=== PATIENT | female | born 1950 | race Caucasian/White ===

== ENCOUNTER → 2016-11-17 | Outpatient (CLI) | payer MEDICARE, MEDICAID ==
[~2016-11-17] MED LIST: ALDACTONE 25MG25 M1 PO; AMBIEN 10MG10 MG PO; AMLOPIDINE PO; ARICEPT10 MG PO; ASPIRIN E.C.325 MG PO; ATIVAN 1MG T1 MG/TAB PO; CARDIZEM CD 24240 MG PO; CARDIZEM LA240 MG PO; CARDIZEM120 MG PO; CELEXA20 MG PO; CITALOPRAM20 MG PO; CLOPIDOGREL PO; COUMADIN 5MG5 MG/TAB PO; COUMADIN 77.5 MG/TAB PO; DIGOXIN PO; DILTIAZEM PO; DILTIAZEM120 MG PO; HYZAAR 12.5 MG-1 TAB PO; ISONIAZID PO; KEPPRA 500MG500 MG PO; LASIX 20MG TABL20 MG PO; LISINOPRIL20 MG PO; METOPROLOL50 MG PO; MYSOLINE 5050 MG/TAB PO; NEURONTIN300 MG/CAP PO; NORCO 325 MG-51 TAB PO; PREVACID 30MG30 M1 PO; PRILOSEC10 MG PO; PROAIR HFA0.09 MG/AC IH; PROTONIX 40MG T40 MG PO; PYRIDOXINE PO; RANITIDINE HYD150 MG PO; RESTORIL30 MG PO; SIMVASTATIN40 MG PO; TAMBOCOR 1100 MG/TAB PO; TAMBOCOR150 MG PO; TIKOSYN0.125 MG PO; ULTRAM 50MG TAB50 MG PO; ULTRAM50 MG PO; VIIBRYD20 MG PO; VITAMIND3 5000; WARFARIN SODIUM5 MG PO; ZANTAC 150150 MG PO; ZANTAC PO; ZANTAC150 MG PO; ZOCOR40 MG PO; ZOLPIDEM TART5 MG PO; ZOLPIDEM5 MG PO; [UNRECOGNIZED DRUG - OTHER]
== END ==
LOC: MHCPAIN 08:40
DX: G89.29 Other chronic pain (principal); M47.817 Spondylosis without myelopathy or radiculopathy, lumbosacral region; M54.16 Radiculopathy, lumbar region; M53.3 Sacrococcygeal disorders, not elsewhere classified; M48.06 Spinal stenosis, lumbar region
CPT/HCPCS: G0463

== ENCOUNTER → 2016-11-30 | Outpatient (CLI) | payer MEDICARE, MEDICAID | LOC: MHCPAIN 08:27 | DX: M47.817 Spondylosis without myelopathy or radiculopathy, lumbosacral region (principal) | CPT/HCPCS: J1100; Q9967 ==

== ENCOUNTER → 2017-01-02 | Outpatient (CLI) | payer MEDICARE, MEDICAID | LOC: MHCPAIN 12:06 | DX: G89.29 Other chronic pain (principal); M47.817 Spondylosis without myelopathy or radiculopathy, lumbosacral region; M54.16 Radiculopathy, lumbar region; M53.3 Sacrococcygeal disorders, not elsewhere classified | CPT/HCPCS: G0463 ==

== ENCOUNTER → 2017-01-11 | Outpatient (CLI) | payer MEDICARE, MEDICAID ==
[2017-01-11 14:04] LABS: PROTHROMBIN TIME 11.1 SECONDS (9.7-12.8)
== END ==
LOC: MHCPAIN 12:01
PROVIDERS: Anesthesiology Pain Medicine
DX: M47.817 Spondylosis without myelopathy or radiculopathy, lumbosacral region (principal); Z79.01 Long term (current) use of anticoagulants; M53.3 Sacrococcygeal disorders, not elsewhere classified
CPT/HCPCS: G0260; J1040; Q9967

== ENCOUNTER 2017-01-31 04:30 | Emergency (ER) | payer MEDICARE, MEDICAID ==
[~2017-01-31] VITALS: Ht 172.7 cm; Wt 113.6 kg
[~2017-01-31 04:30] MED LIST changes: -LASIX 20MG TABL20 MG PO; -VITAMIND3 5000
[2017-01-31 04:32] VITALS: TEMP 97
[2017-01-31] MEDS ORDERED: VITAMIND3 5000 (04:39)
[2017-01-31] MEDS ORDERED: LASIX 20MG TABL20 MG PO (04:39)
[2017-01-31] MEDS ORDERED: NORCO 325 MG-51 TAB PO (05:48)
[2017-01-31 05:58] VITALS: BP 114/68; PULSE 74
== END 2017-01-31 07:00 | disposition home or self-care (01) ==
LOC: COL.ER 04:30
DX: M48.56XA Collapsed vertebra, not elsewhere classified, lumbar region, initial encounter for fracture (principal); M54.16 Radiculopathy, lumbar region; I10 Essential (primary) hypertension; I48.91 Unspecified atrial fibrillation; F17.200 Nicotine dependence, unspecified, uncomplicated; Z95.0 Presence of cardiac pacemaker; Z79.01 Long term (current) use of anticoagulants
CPT/HCPCS: J2270; J2360

== ENCOUNTER → 2017-02-02 | Outpatient (CLI) | payer MEDICARE, MEDICAID ==
[~2017-02-02] MED LIST changes: +LASIX 20MG TABL20 MG PO; +VITAMIND3 5000
== END ==
LOC: COL.RAD 12:30
DX: S32.030A Wedge compression fracture of third lumbar vertebra, initial encounter for closed fracture (principal); S32.010A Wedge compression fracture of first lumbar vertebra, initial encounter for closed fracture; S32.040A Wedge compression fracture of fourth lumbar vertebra, initial encounter for closed fracture; M48.06 Spinal stenosis, lumbar region; M47.816 Spondylosis without myelopathy or radiculopathy, lumbar region; M43.16 Spondylolisthesis, lumbar region; Z87.81 Personal history of (healed) traumatic fracture

== ENCOUNTER → 2017-02-13 | Outpatient (CLI) | payer MEDICARE, MEDICAID | LOC: MHCPAIN 10:00 | DX: G89.29 Other chronic pain (principal); M47.817 Spondylosis without myelopathy or radiculopathy, lumbosacral region; M54.16 Radiculopathy, lumbar region; M53.3 Sacrococcygeal disorders, not elsewhere classified | CPT/HCPCS: G0463 ==

== ENCOUNTER → 2017-03-20 | Outpatient (CLI) | payer MEDICARE, MEDICAID | LOC: MHCPAIN 09:51 | DX: G89.29 Other chronic pain (principal); M47.27 Other spondylosis with radiculopathy, lumbosacral region; M53.3 Sacrococcygeal disorders, not elsewhere classified; Z79.01 Long term (current) use of anticoagulants; M25.569 Pain in unspecified knee; Z96.653 Presence of artificial knee joint, bilateral | CPT/HCPCS: G0463 ==

== ENCOUNTER → 2017-06-19 | Outpatient (CLI) | payer MEDICARE, MEDICAID | LOC: MHCPAIN 09:47 | DX: G89.29 Other chronic pain (principal); M47.817 Spondylosis without myelopathy or radiculopathy, lumbosacral region; M53.3 Sacrococcygeal disorders, not elsewhere classified | CPT/HCPCS: G0463 ==

== ENCOUNTER → 2017-08-03 | Outpatient (CLI) | payer MEDICARE, MEDICAID | LOC: MC.RAD 06:58 | DX: Z12.31 Encounter for screening mammogram for malignant neoplasm of breast (principal) ==

== ENCOUNTER → 2017-08-20 | Outpatient (CLI) | payer MEDICARE, MEDICAID | LOC: MHCPAIN 09:48 | DX: G89.29 Other chronic pain (principal); M47.27 Other spondylosis with radiculopathy, lumbosacral region; M48.061 Spinal stenosis, lumbar region without neurogenic claudication; M53.3 Sacrococcygeal disorders, not elsewhere classified | CPT/HCPCS: G0463 ==

== ENCOUNTER → 2017-09-01 | Outpatient (REF) ==
[2017-09-01 05:10] LABS: INR 1.2 (0.8-3.0); PROTHROMBIN TIME 14.4 SECONDS (9.7-12.8)
== END ==
LOC: ZMSC 05:05
PROVIDERS: Orthopaedic Surgery
DX: Z01.89 Encounter for other specified special examinations (principal)

== ENCOUNTER → 2017-11-27 | Outpatient (CLI) | payer MEDICARE, MEDICAID | LOC: MHCPAIN 13:22 | DX: G89.29 Other chronic pain (principal); M47.817 Spondylosis without myelopathy or radiculopathy, lumbosacral region; M54.16 Radiculopathy, lumbar region; M53.3 Sacrococcygeal disorders, not elsewhere classified | CPT/HCPCS: G0463 ==

== ENCOUNTER → 2017-12-13 | Outpatient (CLI) | payer MEDICARE, MEDICAID | LOC: MHCPAIN 09:42 | DX: M47.817 Spondylosis without myelopathy or radiculopathy, lumbosacral region (principal); M46.96 Unspecified inflammatory spondylopathy, lumbar region | CPT/HCPCS: J1040; Q9967 ==

== ENCOUNTER → 2018-01-15 | Outpatient (CLI) | payer MEDICARE, MEDICAID | LOC: MHCPAIN 13:21 | DX: G89.29 Other chronic pain (principal); M47.817 Spondylosis without myelopathy or radiculopathy, lumbosacral region; M54.16 Radiculopathy, lumbar region; M53.3 Sacrococcygeal disorders, not elsewhere classified; M48.061 Spinal stenosis, lumbar region without neurogenic claudication | CPT/HCPCS: G0463 ==

== ENCOUNTER → 2018-01-21 | Outpatient (CLI) | payer MEDICARE, MEDICAID | LOC: MHCPAIN 12:56 | DX: M47.817 Spondylosis without myelopathy or radiculopathy, lumbosacral region (principal); M48.061 Spinal stenosis, lumbar region without neurogenic claudication | CPT/HCPCS: J1040; Q9967 ==

== ENCOUNTER → 2018-03-04 | Outpatient (CLI) | payer MEDICARE, MEDICAID | LOC: MHCPAIN 10:07 | DX: G89.29 Other chronic pain (principal); M47.817 Spondylosis without myelopathy or radiculopathy, lumbosacral region; M54.16 Radiculopathy, lumbar region; M53.3 Sacrococcygeal disorders, not elsewhere classified; M48.061 Spinal stenosis, lumbar region without neurogenic claudication | CPT/HCPCS: G0463 ==

== ENCOUNTER → 2018-04-25 | Outpatient (REF) ==
[~2018-04-25] MED LIST changes: +D3-5050000 IU PO; +HYZAAR 25 MG-101 TAB PO; +KEPPRA750 MG PO; +OMNICEF 300MG300 MG PO; +TYLENOL 325MG325 MG PO; +VIIBRYD40 MG PO
[2018-04-25 13:48] LABS: HEMATOCRIT 37.4 % (37.0-47.0); HEMOGLOBIN 11.9 g/dl (12.5-16.0); MEAN CELL VOLUME 97 fl (80.0-100.0); MEAN CORPUSCULAR HEMOGLOBIN 31 pg (27.0-31.0); MEAN CORPUSCULAR HGB CONC 32 g/dl (33.0-37.0); MEAN PLATELET VOLUME 9.9 fl (7.4-10.4); PLATELET COUNT 288 K/mm3 (130-400); RED BLOOD COUNT 3.86 M/mm3 (4.10-5.30); REDCELL DISTRIBUTION WIDTH-CV 13.7 % (11.5-14.5)
== END ==
LOC: ZLAB.STJ 13:43
PROVIDERS: Internal Medicine
DX: J13 Pneumonia due to Streptococcus pneumoniae (principal); E87.8 Other disorders of electrolyte and fluid balance, not elsewhere classified

== ENCOUNTER → 2018-04-26 | Outpatient (REF) ==
[2018-04-26 10:15] LABS: CALCIUM 8.4 mg/dL (8.4-10.2); CREATININE, serum 0.83 mg/dL (0.52-1.25); POTASSIUM 4.7 mmol/L (3.4-5.0)
== END ==
LOC: ZLAB.STJ 09:49
PROVIDERS: Internal Medicine
DX: R79.89 Other specified abnormal findings of blood chemistry (principal)

== ENCOUNTER → 2018-09-18 | Outpatient (CLI) | payer MEDICARE, MEDICAID | LOC: MHCPAIN 13:57 | DX: G89.29 Other chronic pain (principal); M47.817 Spondylosis without myelopathy or radiculopathy, lumbosacral region; M54.16 Radiculopathy, lumbar region; M53.3 Sacrococcygeal disorders, not elsewhere classified; M48.061 Spinal stenosis, lumbar region without neurogenic claudication | CPT/HCPCS: G0463 ==

== ENCOUNTER → 2018-09-26 | Outpatient (CLI) | payer MEDICARE, MEDICAID | LOC: MHCPAIN 09:32 | DX: M47.817 Spondylosis without myelopathy or radiculopathy, lumbosacral region (principal); M54.16 Radiculopathy, lumbar region | CPT/HCPCS: J1100; Q9967 ==

== ENCOUNTER → 2018-12-09 | Outpatient (CLI) | payer MEDICARE, MEDICAID | LOC: MHCPAIN 10:52 | DX: G89.29 Other chronic pain (principal); M47.817 Spondylosis without myelopathy or radiculopathy, lumbosacral region; M54.16 Radiculopathy, lumbar region; M53.3 Sacrococcygeal disorders, not elsewhere classified; M48.061 Spinal stenosis, lumbar region without neurogenic claudication | CPT/HCPCS: G0463 ==

== ENCOUNTER 2019-01-27 08:30 | Emergency (ER) | payer MEDICARE, MEDICAID ==
[~2019-01-27] VITALS: Ht 170.2 cm; Wt 109.1 kg
[2019-01-27 08:33] VITALS: BP 127/82; TEMP 97.5
[2019-01-27] MEDS ORDERED: KEPPRA750 MG PO (09:00)
[2019-01-27] MEDS ORDERED: COUMADIN 5MG5 MG/TAB PO (09:01)
[2019-01-27] MEDS ORDERED: COUMADIN 2MG2 MG/TAB PO (09:02)
[2019-01-27 12:29] VITALS: PULSE 74
== END 2019-01-27 12:29 | disposition home or self-care (01) ==
LOC: COL.ER 08:30
DX: S02.69XA Fracture of mandible of other specified site, initial encounter for closed fracture (principal); I48.91 Unspecified atrial fibrillation; K21.9 Gastro-esophageal reflux disease without esophagitis; F32.9 Major depressive disorder, single episode, unspecified; Z79.01 Long term (current) use of anticoagulants; Z95.0 Presence of cardiac pacemaker; W01.10XA Fall on same level from slipping, tripping and stumbling with subsequent striking against unspecified object, initial encounter; Y92.009 Unspecified place in unspecified non-institutional (private) residence as the place of occurrence of the external cause

== ENCOUNTER 2019-05-13 18:11 | Emergency (ER) | payer MEDICARE, MEDICAID ==
[~2019-05-13] VITALS: Ht 170.2 cm; Wt 97.7 kg
[~2019-05-13 18:11] MED LIST changes: +COUMADIN 2MG2 MG/TAB PO
[2019-05-13 18:29] VITALS: TEMP 98
[2019-05-13 19:04] LABS: HEMATOCRIT 41.5 % (37.0-47.0); HEMOGLOBIN 13.6 g/dl (12.5-16.0); MEAN CELL VOLUME 94 fl (80.0-100.0); MEAN CORPUSCULAR HEMOGLOBIN 31 pg (27.0-31.0); MEAN CORPUSCULAR HGB CONC 33 g/dl (33.0-37.0); MEAN PLATELET VOLUME 10.2 fl (7.4-10.4); PLATELET COUNT 182 K/mm3 (130-400); RED BLOOD COUNT 4.43 M/mm3 (4.10-5.30); REDCELL DISTRIBUTION WIDTH-CV 13.8 % (11.5-14.5)
[2019-05-13 19:08] LABS: INR 2.3 (0.8-3.0); PROTHROMBIN TIME 27.8 SECONDS (9.7-12.8)
[2019-05-13 19:23] LABS: ALANINE AMINOTRANSFERASE 10 U/L (9-52); ALBUMIN 4.5 gm/dL (3.5-5.0); ALKALINE PHOSPHATASE 109 U/L (50-136); ANION GAP 10 mmol/L (7-16); AST,SGOT 41 U/L (15-37); BILIRUBIN,TOTAL 0.7 mg/dL (0.0-1.0); BLOOD UREA NITROGEN 11 mg/dL (7-17); C-REACTIVE PROTEIN 0.9 mg/dL (0.0-0.9); CALCIUM 9.2 mg/dL (8.4-10.2); CARBON DIOXIDE 29 mmol/L (22-30); CHLORIDE 99 mmol/L (98-107); CREATININE, serum 0.89 (0.52-1.25); GLUCOSE 80 mg/dL (74-106); POTASSIUM 3.5 mmol/L (3.4-5.0); SODIUM 138 mmol/L (137-145); TOTAL PROTEIN 7.6 gm/dL (6.4-8.2)
[2019-05-13 19:39] LABS: TROPONIN-I < 0.012 ng/mL (0.000-0.035)
[2019-05-13] MEDS ORDERED: JANTOVEN6 MG PO (19:41)
[2019-05-13] MEDS ORDERED: COUMADIN 5MG5 MG/TAB PO (19:41)
[2019-05-13 19:49] VITALS: BP 114/83
[2019-05-13 19:54] LABS: NEUTROPHILS 43 % (42.0-75.2); PLATELET ESTIMATE NORMAL (NORMAL)
[2019-05-13 19:55] LABS: LYMPHOCYTE 53 % (20.0-51.0)
[2019-05-13] MEDS ORDERED: NORCO 325 MG-51 TAB PO (20:26)
[2019-05-13 20:41] VITALS: PULSE 98
[2019-05-13] MEDS ORDERED: ZITHROMAX 250M250 MG PO (20:41)
== END 2019-05-13 20:59 | disposition home or self-care (01) ==
LOC: COL.ER 18:11
PROVIDERS: Emergency Medicine
DX: J20.9 Acute bronchitis, unspecified (principal); S22.31XA Fracture of one rib, right side, initial encounter for closed fracture; I48.91 Unspecified atrial fibrillation; Z79.01 Long term (current) use of anticoagulants

== ENCOUNTER 2019-10-24 16:04 | Inpatient (IN) | payer MEDICARE, MEDICAID ==
[~2019-10-24] VITALS: Ht 170.2 cm; Wt 94.3 kg
[~2019-10-24 16:04] MED LIST changes: +JANTOVEN6 MG PO; +ZITHROMAX 250M250 MG PO
[2019-10-24] MEDS ORDERED: PROTONIX 40MG T40 MG PO (16:24)
[2019-10-24] MEDS ORDERED: MYSOLINE 5050 MG/TAB PO (16:25)
[2019-10-24 17:14] LABS: BASO % 0.4 % (0.0-2.0); EOS # 0.1 (0.0-0.7); EOS % 2.1 % (0-4.0); GRAN # 3.1 (1.4-6.5); GRAN % 58.5 % (42.2-75.2); HEMATOCRIT 40.5 % (37.0-47.0); HEMOGLOBIN 13.2 g/dl (12.5-16.0); LYMPH # 1.5 (1.2-3.4); LYMPH % 27.3 % (20.0-51.0); MEAN CELL VOLUME 96 fl (80.0-100.0); MEAN CORPUSCULAR HEMOGLOBIN 31 pg (27.0-31.0); MEAN CORPUSCULAR HGB CONC 33 g/dl (33.0-37.0); MEAN PLATELET VOLUME 10.2 fl (7.4-10.4); MONO # 0.6 (0.1-0.6); MONO % 11.5 % (1.7-9.3); PLATELET COUNT 185 K/mm3 (130-400); RED BLOOD COUNT 4.23 M/mm3 (4.10-5.30); REDCELL DISTRIBUTION WIDTH-CV 14.2 % (11.5-14.5)
[2019-10-24 17:17] LABS: INR 1.9 (0.8-3.0); PROTHROMBIN TIME 22.8 SECONDS (9.7-12.8)
[2019-10-24 17:22] LABS: ALANINE AMINOTRANSFERASE 17 U/L (4-34); ALBUMIN 4.3 gm/dL (3.5-5.0); ALKALINE PHOSPHATASE 115 U/L (50-136); ANION GAP 10 mmol/L (7-16); AST,SGOT 36 U/L (15-37); BILIRUBIN,TOTAL 1.3 mg/dL (0.0-1.0); BLOOD UREA NITROGEN 14 mg/dL (7-17); C-REACTIVE PROTEIN 1.7 mg/dL (0.0-0.9); CALCIUM 9.1 mg/dL (8.4-10.2); CARBON DIOXIDE 22 mmol/L (22-30); CHLORIDE 103 mmol/L (98-107); CREATININE, serum 1.05 (0.52-1.25); GLUCOSE 117 mg/dL (74-106); POTASSIUM 4.4 mmol/L (3.4-5.0); SODIUM 135 mmol/L (137-145); TOTAL PROTEIN 7.5 gm/dL (6.4-8.2)
[2019-10-24 17:31] LABS: TROPONIN-I < 0.012 ng/mL (0.000-0.035)
[2019-10-24 17:41] LABS: ARTERIAL BLD GAS O2 SATURATION 95.2 % (92-100); ARTERIAL BLD GAS TCO2 CT 20.3; ARTERIAL BLOOD GAS BASE EXCESS -3.8 (-2-2); ARTERIAL BLOOD GAS HCO3 19.3 meq/L (22-26); ARTERIAL BLOOD GAS PCO2 29.8 mmHg (35-45); ARTERIAL BLOOD GAS PO2 74.4 mmHg (80-100); ARTERIAL BLOOD GAS pH 7.43 (7.35-7.45)
[2019-10-24 18:41] LABS: MAGNESIUM 1.9 mg/dL (1.6-2.3)
[2019-10-24 19:00] VITALS: BP 134/97; PULSE 103; TEMP 98.8
[2019-10-24 19:12] LABS: THYROID STIMULATING HORMONE 6.41 uIU/mL (0.465-4.680)
[2019-10-24 19:50] VITALS: BP 134/97; PULSE 103; TEMP 98.8
--- NOTE | 2019-10-24 19:50 | NUR ---
PT ADMITTED TO CU 15 FROM ED, PT CURRENTLY ON 6L OXYMASK, CARDIZEM GTT @15MG/HR. PT DENIES ANY PAIN BUT STATES SHE IS STILL A BIT SHORT OF BREATH. VSS AT THIS TIME, WILL CONTINUE TO ASSESS AND CONTINUE TO MONITOR.
[2019-10-24 20:00] VITALS: BP 124/70
[2019-10-24] MEDS ORDERED: VITAMIND3 5000 PO (20:07)
[2019-10-25] VITALS (9 sets, daily range): BP systolic 108–131; BP diastolic 68–90; PULSE 71–101; TEMP 97.8–99.2
[2019-10-25 05:47] LABS: BASO % 0.6 % (0.0-2.0); EOS # 0.2 (0.0-0.7); GRAN # 2.5 (1.4-6.5); GRAN % 49.5 % (42.2-75.2); HEMATOCRIT 38.5 % (37.0-47.0); HEMOGLOBIN 12.5 g/dl (12.5-16.0); LYMPH # 1.8 (1.2-3.4); LYMPH % 35.3 % (20.0-51.0); MEAN CELL VOLUME 95 fl (80.0-100.0); MEAN CORPUSCULAR HEMOGLOBIN 31 pg (27.0-31.0); MEAN CORPUSCULAR HGB CONC 33 g/dl (33.0-37.0); MEAN PLATELET VOLUME 9.9 fl (7.4-10.4); MONO # 0.6 (0.1-0.6); MONO % 11.4 % (1.7-9.3); PLATELET COUNT 159 K/mm3 (130-400); RED BLOOD COUNT 4.06 M/mm3 (4.10-5.30); REDCELL DISTRIBUTION WIDTH-CV 13.8 % (11.5-14.5)
[2019-10-25 05:53] LABS: CALCIUM 8.7 mg/dL (8.4-10.2); CREATININE, serum 0.83 (0.52-1.25); POTASSIUM 3.8 mmol/L (3.4-5.0)
--- NOTE | 2019-10-25 07:20 | NUR ---
Report recieved from CHIDI Clayton. Patient awake and participates. Cardizem concentration and rate verified and infusing to uncomplicated LAC IV. OM at 6LO2 in place and turned down to 4L. Patient denies needs at this time. Care assumed.
[2019-10-25 09:30] LABS: INR 1.8 (0.8-3.0); PROTHROMBIN TIME 21.6 SECONDS (9.7-12.8)
--- NOTE | 2019-10-25 09:30 | NUR ---
Dr. Garcia rounds at this time. Orders as entered CPOE.
--- NOTE | 2019-10-25 10:42 | NUR ---
Chaz from [employer] contacted per MD request for pacer interrogation. Chaz asks ED interrogation device be utilized. psychiatric social worker supervisor is notified of need.
[2019-10-26] VITALS (7 sets, daily range): BP systolic 105–120; BP diastolic 65–89; PULSE 80–110; TEMP 97.8–98.2
--- NOTE | 2019-10-26 04:37 | NUR ---
Pt in bed with Oxymask on, HOB elevated to 30 degree angle, denies pain or discomfort, and A/O x3. Pt awaken easily and is pleasant and cooperative with cares. LS CTA with resp even and unlabored, and BLE +2 edema. Pt denies any needs at this time, but has call light within reach.
--- NOTE | 2019-10-26 07:00 | NUR ---
Report received from CHIDI Aguilera. Pt in bed resting with no needs, awake and alert, anticipating breakfast, will continue to monitor.
[2019-10-26 09:40] LABS: CALCIUM 8.4 mg/dL (8.4-10.2); CREATININE, serum 0.91 (0.52-1.25); MAGNESIUM 1.8 mg/dL (1.6-2.3); POTASSIUM 3.6 mmol/L (3.4-5.0)
[2019-10-26 09:42] LABS: HEMOGLOBIN 11.1 g/dl (12.5-16.0); MEAN CELL VOLUME 96 fl (80.0-100.0); MEAN CORPUSCULAR HEMOGLOBIN 31 pg (27.0-31.0); MEAN CORPUSCULAR HGB CONC 33 g/dl (33.0-37.0); MEAN PLATELET VOLUME 10.1 fl (7.4-10.4); PLATELET COUNT 161 K/mm3 (130-400); RED BLOOD COUNT 3.55 M/mm3 (4.10-5.30); REDCELL DISTRIBUTION WIDTH-CV 13.8 % (11.5-14.5)
--- NOTE | 2019-10-26 10:07 | NUR ---
Assessment charted. Pt doing well, continues to have irregular heart rhythm per monitor and pt aware. BB fine crackles and diminished but UL clear bilaterally. Denies pain, oriented, anticipating echo. NO IV access, doctors aware, will continue to monitor.
[2019-10-26 10:53] LABS: HEMATOCRIT 34.2 % (37.0-47.0)
[2019-10-26 11:51] LABS: BAND 5 % (0-10); EOSINOPHIL 3 % (0-4); LYMPHOCYTE 31 % (20.0-51.0); NEUTROPHILS 59 % (42.0-75.2); PLATELET ESTIMATE NORMAL (NORMAL)
[2019-10-26 13:55] LABS: INR 2.1 (0.8-3.0); PROTHROMBIN TIME 24.7 SECONDS (9.7-12.8)
--- NOTE | 2019-10-26 16:42 | NUR ---
Report called to Rupa MURILLO who will resume care. Will transport pt up via w/c with all belongings and medical nurse will resume care.
--- NOTE | 2019-10-26 17:41 | NUR ---
Patient transferred from [facility] to room 309. arived to room via wc. report received from Hannah MURILLO. Upon arrival patient A/O x 4. Denies c/o pain or discomfort. Ambulated with stand by assist to recliner. O2 4L/NC in place. patient denies shortness of breathe at this time. telemetry monitoring in place as ordered. coasre crackles in all lobes upon ascultation. 2+ pitting edema in bilateral lower extremities. chart reviewed. Allergies reviewed with patient. Patient oriented to room. Demonstrates appropriate usage of call light. No questions or concerns at end of visit.
--- NOTE | 2019-10-26 20:00 | NUR ---
PT IN ROOM SITTING IN RECLINER AND AMBULATED TO BED. PT HAS HOB ELEVATED, NO C/O PAIN OR DISCOMFORT. PT REMAINS WITH OXYGEN ON, BUT RESP EVEN AND UNLABORED. PT DENIES PAIN OR ANY NEEDS AT THIS TIME. CALL LIGHT WITHIN REACH.
[2019-10-27] VITALS (8 sets, daily range): BP systolic 103–119; BP diastolic 56–74; PULSE 64–120; TEMP 97.9–98.6
--- NOTE | 2019-10-27 06:22 | NUR ---
PT HAD NO CHANGES DURING THIS SHIFT. PT SLEPT WELL AND NO C/O PAIN OR DISCOMFORT. PT AMBULATED TO THE BATHROOM AND BACK WITHOUT DIFFICULTIES. PT STILL WEARING OXYGEN, BUT RESP ARE EVEN AND UNLABORED. CALL LIGHT WITHIN REACH.
[2019-10-27 11:18] LABS: INR 2.1 (0.8-3.0); PROTHROMBIN TIME 25.3 SECONDS (9.7-12.8)
--- NOTE | 2019-10-27 16:06 | NUR ---
Customs Verifier met with patient to discuss discharge planning. Patient lives alone in [place] and sees Dr. Kirkland from primary care. Patient obtains medications from [facility] pharmacy with no difficulties. Patient reports she has had more difficulty getting around recently. Patient uses a walking stick and CPAP at home. Patient has Advance Directives on file that designate Lester Aleman and Lucero Angulo, daughter (ph#[phone]). Patient states her granddaughter, Fernanda (ph#[phone]) is also a good contact for her. Patient states she has had [facility] in the past and isn't sure if she would need HH upon discharge. Patient plans to return home upon discharge. ARY spoke with ИВАН Pond about ordering PT/OT. SW to continue to follow.
--- NOTE | 2019-10-27 16:30 | NUR ---
Report with CHIDI Goode and care taken over by this nurse for remainder of shift. Pt sitting up in bed, denies pain or needs. Call light in reach.
[2019-10-28] VITALS (16 sets, daily range): BP systolic 99–140; BP diastolic 57–95; PULSE 62–89; TEMP 97.6–98.1
--- NOTE | 2019-10-28 04:43 | NUR ---
PATIENT HAS HAD AN UNEVENTFUL NIGHT. PATIENT HAS SLEPT AND DENIED ANY NEEDS. DURING HER ASSESSMENT IN THE HS - LUNG SOUNDS WERE NOTED TO BE COARSE THROUGHOUT. NO OTHER SIGNIFICANT FINDINGS WERE NOTED. WILL REPORT OFF TO DAY SHIFT UPON THEIR ARRIVAL
[2019-10-28 06:34] LABS: BASO % 0.6 % (0.0-2.0); EOS # 0.2 (0.0-0.7); EOS % 4.4 % (0-4.0); GRAN # 1.6 (1.4-6.5); GRAN % 43.8 % (42.2-75.2); HEMOGLOBIN 11.2 g/dl (12.5-16.0); LYMPH # 1.4 (1.2-3.4); LYMPH % 38.2 % (20.0-51.0); MEAN CELL VOLUME 98 fl (80.0-100.0); MEAN CORPUSCULAR HEMOGLOBIN 31 pg (27.0-31.0); MEAN CORPUSCULAR HGB CONC 32 g/dl (33.0-37.0); MEAN PLATELET VOLUME 9.9 fl (7.4-10.4); MONO # 0.5 (0.1-0.6); MONO % 12.7 % (1.7-9.3); PLATELET COUNT 171 K/mm3 (130-400); RED BLOOD COUNT 3.57 M/mm3 (4.10-5.30); REDCELL DISTRIBUTION WIDTH-CV 13.6 % (11.5-14.5)
[2019-10-28 06:41] LABS: CALCIUM 8.9 mg/dL (8.4-10.2); CREATININE, serum 0.91 (0.52-1.25); POTASSIUM 4.1 mmol/L (3.4-5.0)
[2019-10-28 07:05] LABS: HEMATOCRIT 34.9 % (37.0-47.0)
[2019-10-28 08:29] LABS: INR 1.4 (0.8-3.0); PROTHROMBIN TIME 15.9 SECONDS (9.7-12.8)
--- NOTE | 2019-10-28 09:13 | NUR ---
SEE MERGE FOR MEDICATION ADMINISTRATION TIMES AND INTRA AND POST SEDATION ASSESSMENTS.
--- NOTE | 2019-10-28 10:23 | NUR ---
PATIENT BACK IN ROOM FROM BIODIESEL ENGINEERING MANAGER. A/O X4. DENIES COMPLAINTS OF PAIN OR DISCOMFORT. TR BAND IN PLACE OF RIGHT RADIAL INSERTION SITE. PER BIODIESEL ENGINEERING MANAGER RN 14ML AIR IN BAND. NEUROVASCULAR CHECKS WNL. CAP REFILL LESS THAN 3 SECONDS. SKIN PINK AND WARM. DENIES NUMBNESS AND TINGLING IN RIGHT HAND. NO DRAINAGE NOTED. PATIENT HAS NO QUESTIONS OR CONCERNS.
--- NOTE | 2019-10-28 10:52 | NUR ---
PATIENT SITTING UP IN BED EATING BREAKFAST. DENIES NEEDS OR CONCERNS. RIGHT RADIAL WNL. SEE DOCUMENTATION.
--- NOTE | 2019-10-28 11:35 | NUR ---
PATIENT UP TO BATHRROM WITH STAND BY ASSIST. STEADY GAIT. DENIES C/O SOA, CHEST PAIN, OR BEING LIGHT HEADED. CURRENTLY BACK IN BED. SEE DOCUMENTATION FOR VS WNL. IV FLUIDS INFUSING ORDERED X 2 HOURS. POST HEART CATH EKG COMPLETED BY RT. RIGHT RADIAL INSERTION SITE WNL. SKIN PINK AND WARM. PATIENT DENIES NUMBNESS OR TINGLING TO HAND OR FINGERS. CAP REFILL LESS THAN 3 SECONDS.
--- NOTE | 2019-10-28 12:12 | NUR ---
First visit from the finger waver. No needs right now.
--- NOTE | 2019-10-28 14:05 | NUR ---
PATIENT LAYING IN BED ASLEEP. AROUSABLE WHEN NAME CALLED. UPON OBSERVATION OF RIGHT RADIAL INSERTION SITE SMALL AMOUNT OF BRIGHT RED BLOOD PRESENT UNDER TR BAND. BAND REINFLATED WITH 5MLS OF AIR. RIGHT HAND PINK AND WARM. DENIES NUMBNESS OR TINGLING. CAP REFILL LESS THAN 3 SECONDS. REMOTE RECRUITER RN CALLED NO OTHER INTERVENTIONS AT THIS TIME.
--- NOTE | 2019-10-28 14:23 | NUR ---
NO ACTIVE BLLEDING TO RIGHT RADIAL PUNCTURE SITE. 5ML AIR REMOVED FROM TR BAND.
--- NOTE | 2019-10-28 20:30 | NUR ---
Patient assessed at this time. Alert and oriented x 4, and able to make needs known. Denies having pain and discomfort. Peripheral IV to left forearm. Denies having SOB and dyspnea. Currently on room air. LS CTA in upper lobes, diminished in lower. Respirations even and unlabored. HRI. Telemetry in place. Capillary refill less than 3 seconds. Non-tenting skin turgor. Right radial site from heart cath today is without hemotoma. Bandaid CDI. Arm board in place. BSAx4. Abdomen soft and non-tender. 3+ edema BLE. Voices no questions, needs, or concerns at this time. Aware that she is NPO after midnight for ERIKA and cardioversion for tomorrow. Resting in bed with call light within reach.
[2019-10-29 03:23] VITALS: BP 117/55; PULSE 69; TEMP 98
--- NOTE | 2019-10-29 06:07 | NUR ---
Patient denies having pain and discomfort. Bandaid to right radial site is CDI. Arm board in place. NPO for ERIKA and CV today.
[2019-10-29 06:13] LABS: BASO % 0.5 % (0.0-2.0); EOS # 0.2 (0.0-0.7); EOS % 4.1 % (0-4.0); GRAN # 1.8 (1.4-6.5); GRAN % 46.8 % (42.2-75.2); HEMATOCRIT 38.3 % (37.0-47.0); HEMOGLOBIN 12.2 g/dl (12.5-16.0); LYMPH # 1.5 (1.2-3.4); LYMPH % 38.6 % (20.0-51.0); MEAN CELL VOLUME 97 fl (80.0-100.0); MEAN CORPUSCULAR HEMOGLOBIN 31 pg (27.0-31.0); MEAN CORPUSCULAR HGB CONC 32 g/dl (33.0-37.0); MEAN PLATELET VOLUME 10.1 fl (7.4-10.4); MONO # 0.4 (0.1-0.6); MONO % 9.7 % (1.7-9.3); PLATELET COUNT 187 K/mm3 (130-400); RED BLOOD COUNT 3.96 M/mm3 (4.10-5.30); REDCELL DISTRIBUTION WIDTH-CV 13.5 % (11.5-14.5)
[2019-10-29 06:17] LABS: INR 1.2 (0.8-3.0); PROTHROMBIN TIME 13.5 SECONDS (9.7-12.8)
[2019-10-29 06:24] LABS: CALCIUM 9.3 mg/dL (8.4-10.2); CREATININE, serum 0.88 (0.52-1.25); POTASSIUM 4.1 mmol/L (3.4-5.0)
--- NOTE | 2019-10-29 07:41 | NUR ---
Warfarin Follow-up Pharmacy Note Current regimen: Warfarin 5 mg po qHS LABS: INR=1.2 Changes in therapy: Give increased dose of Warfarin 7.5 mg po tonight and then restart home regimen. May require decrease of home dose with the start of amiodarone. Pharmacy will continue to monitor daily INR levels.
[2019-10-29 08:10] VITALS: BP 136/75; PULSE 91; TEMP 97.9
--- NOTE | 2019-10-29 11:14 | NUR ---
Emergency Department Manager attended clinical rounds with the team and patient may discharge later today per Cardiology. Patient advised she is independent in her room and has had no difficulty getting to the bathroom or to her chair. Instrument Engineer recommending Eliquis for patient. PharmacistBozena contacted patient's pharmacy and Eliquis would be 100% covered by her insurance providers. SW met with patient about Home Health services as patient only walked 15 feet with therapy this morning. Patient states she does not feel she needs HH and has been doing well in her room. Patient states her son lives close by and is able to assist her as needed. SW to continue to follow.
[2019-10-29 12:00] VITALS: BP 122/73; PULSE 70; TEMP 97.5
[2019-10-29 13:17] VITALS: BP 137/66; PULSE 70
--- NOTE | 2019-10-29 14:32 | NUR ---
Patient is alert and oriented. denies any pain. 2+ bilateral lower extremity edema. bruise in her right hand, patient said it was from a previous IV site. Heart rhythm is irregular, breath sound is clear. denies any SOB. O2 sat >90 on RA. patient went for ERIKA/ Cardioversion, procedure successful. patient is currently A-paced. patient tolerate diet post-procedure.
--- NOTE | 2019-10-29 15:09 | NUR ---
SW presented the IM form to the patient, the patient understood. Due to COVID-19 social distancing precautions, the patient gave persmission for SW to sign on her behalf. A copy was provided to the patient and original was placed in the chart. ARY revisted the discharge plan with the patient. She is not interested in [facility] at this time. ARY educated the patient on how to receive those services in the [facility], if needed. Will continue to monitor.
[2019-10-29] MEDS ORDERED: ELIQUIS 5MG PO (15:21)
[2019-10-29] MEDS ORDERED: PACERONE400 MG PO (15:22)
[2019-10-29] MEDS ORDERED: LASIX 40MG TABL40 MG PO (15:23)
[2019-10-29] MEDS ORDERED: ZEBETA 5MG5 MG PO (15:23)
[2019-10-29 15:37] VITALS: BP 112/59; PULSE 69; TEMP 97.3
--- NOTE | 2019-10-29 17:15 | NUR ---
INT discontinued. patient was informed of future appointment with supply cataloguer and BMP in one week. patient was given discharge teaching on Afib, CHF, falls, and INR. Patient said she have all her belonging. Patient discharged.
== END 2019-10-29 17:00 | disposition home or self-care (01) | DRG 286 ==
LOC: COL.ER 16:04 → IMCU 18:26 → MEDICAL 10-26 16:36
PROVIDERS: Emergency Medicine; Nurse Practitioner Family; Physician Assistant; Student in an Organized Health Care Education/Training Program; ADMIT Internal Medicine
PROC: 5A2204Z Restoration of Cardiac Rhythm, Single (ICD-10-PCS; 2019-10-24)
PROC: 4A023N8 Measurement of Cardiac Sampling and Pressure, Bilateral, Percutaneous Approach (ICD-10-PCS; principal; 2019-10-28)
PROC: B211YZZ Fluoroscopy of Multiple Coronary Arteries using Other Contrast (ICD-10-PCS; 2019-10-28)
DX: I48.91 Unspecified atrial fibrillation (principal); J96.01 Acute respiratory failure with hypoxia; I50.23 Acute on chronic systolic (congestive) heart failure; Z96.653 Presence of artificial knee joint, bilateral; G40.909 Epilepsy, unspecified, not intractable, without status epilepticus; I42.9 Cardiomyopathy, unspecified; I42.0 Dilated cardiomyopathy; I07.1 Rheumatic tricuspid insufficiency; Z79.01 Long term (current) use of anticoagulants; Z95.0 Presence of cardiac pacemaker; Z98.51 Tubal ligation status; Z86.73 Personal history of transient ischemic attack (TIA), and cerebral infarction without residual deficits; G25.0 Essential tremor
CPT/HCPCS: 99223-AI; 99232-AI; 99233-AI; 99239; C1769; J1160; J1644; J1940; J2250; J2704; J3010; Q9967

== ENCOUNTER 2019-11-21 11:19 | Emergency (ER) | payer MEDICARE, MEDICAID ==
[~2019-11-21] VITALS: Ht 170.2 cm; Wt 88.6 kg
[~2019-11-21 11:19] MED LIST changes: +ELIQUIS 5MG PO; +LASIX 40MG TABL40 MG PO; +PACERONE400 MG PO; +VITAMIND3 5000 PO; +ZEBETA 5MG5 MG PO
[2019-11-21 11:23] VITALS: TEMP 97.8
[2019-11-21 12:12] LABS: BASO % 0.3 % (0.0-2.0); EOS # 0.1 (0.0-0.7); EOS % 3.7 % (0-4.0); GRAN # 1.5 (1.4-6.5); GRAN % 49.1 % (42.2-75.2); HEMATOCRIT 38.5 % (37.0-47.0); HEMOGLOBIN 12.4 g/dl (12.5-16.0); LYMPH # 1.2 (1.2-3.4); LYMPH % 38.9 % (20.0-51.0); MEAN CELL VOLUME 96 fl (80.0-100.0); MEAN CORPUSCULAR HEMOGLOBIN 31 pg (27.0-31.0); MEAN CORPUSCULAR HGB CONC 32 g/dl (33.0-37.0); MEAN PLATELET VOLUME 12.7 fl (7.4-10.4); MONO # 0.2 (0.1-0.6); MONO % 7.3 % (1.7-9.3); PLATELET COUNT 113 K/mm3 (130-400); RED BLOOD COUNT 4.03 M/mm3 (4.10-5.30); REDCELL DISTRIBUTION WIDTH-CV 13.9 % (11.5-14.5)
[2019-11-21 12:39] LABS: INR 1.4 (0.8-3.0); PROTHROMBIN TIME 16.1 SECONDS (9.7-12.8)
[2019-11-21 12:50] LABS: ALBUMIN 4.1 gm/dL (3.5-5.0); CREATININE, serum 1.05 (0.52-1.25)
[2019-11-21 13:01] LABS: TROPONIN-I 0.019 ng/mL (0.000-0.035)
[2019-11-21] MEDS ORDERED: DOXYCYCLINE 10100 MG PO (13:23)
[2019-11-21 15:40] VITALS: BP 96/66; PULSE 70
== END 2019-11-21 15:50 | disposition home or self-care (01) ==
LOC: COL.ER 11:19
PROVIDERS: Emergency Medicine
DX: R06.02 Shortness of breath (principal); R05 Cough; I48.91 Unspecified atrial fibrillation; G40.909 Epilepsy, unspecified, not intractable, without status epilepticus; Z95.9 Presence of cardiac and vascular implant and graft, unspecified; Z79.01 Long term (current) use of anticoagulants
CPT/HCPCS: J0696; J1940

== ENCOUNTER 2019-12-02 06:17 | Day surgery (SDC) | payer MEDICARE, MEDICAID ==
[~2019-12-02] VITALS: Ht 170.2 cm; Wt 94.4 kg
[2019-12-02] VITALS (7 sets, daily range): BP systolic 111–125; BP diastolic 72–83; PULSE 68–80; TEMP 98
[~2019-12-02 06:17] MED LIST changes: +DOXYCYCLINE 10100 MG PO
[2019-12-02 07:53] LABS: HEMATOCRIT 38.4 % (37.0-47.0); HEMOGLOBIN 12.4 g/dl (12.5-16.0); MEAN CELL VOLUME 96 fl (80.0-100.0); MEAN CORPUSCULAR HEMOGLOBIN 31 pg (27.0-31.0); MEAN CORPUSCULAR HGB CONC 32 g/dl (33.0-37.0); MEAN PLATELET VOLUME 11.3 fl (7.4-10.4); PLATELET COUNT 104 K/mm3 (130-400); REDCELL DISTRIBUTION WIDTH-CV 14.6 % (11.5-14.5)
[2019-12-02 07:54] LABS: INR 1.7 (0.8-3.0); PROTHROMBIN TIME 18.7 SECONDS (9.7-12.8)
[2019-12-02 07:57] LABS: PARTIAL THROMBOPLASTIN TIME 41.4 SECONDS (26.0-37.0)
[2019-12-02 08:00] LABS: CREATININE, serum 1.12 (0.52-1.25); POTASSIUM 4.3 mmol/L (3.4-5.0)
[2019-12-02] MEDS ORDERED: PACERONE400 MG PO ×2 (08:26→10:01)
[2019-12-02] MEDS ORDERED: ZEBETA 5MG5 MG PO (08:26)
[2019-12-02] MEDS ORDERED: LASIX 40MG TABL40 MG PO (08:27)
[2019-12-02 08:28] LABS: THYROID STIMULATING HORMONE 12.4 uIU/mL (0.465-4.680)
[2019-12-02] MEDS ORDERED: PROTONIX 40MG T40 MG PO (08:28)
[2019-12-02] MEDS ORDERED: ELIQUIS 5MG PO (08:28)
--- NOTE | 2019-12-02 11:15 | NUR ---
INT discontinued intact. Discharge instructions given. Transferred to private car by serina
== END 2019-12-02 11:15 | disposition home or self-care (01) ==
LOC: COL.CAR 06:17
PROVIDERS: Internal Medicine Cardiovascular Disease
DX: I48.0 Paroxysmal atrial fibrillation (principal); I49.5 Sick sinus syndrome; I42.8 Other cardiomyopathies; I11.9 Hypertensive heart disease without heart failure; K21.9 Gastro-esophageal reflux disease without esophagitis; I38 Endocarditis, valve unspecified; G47.33 Obstructive sleep apnea (adult) (pediatric); R60.9 Edema, unspecified; M85.80 Other specified disorders of bone density and structure, unspecified site; F32.9 Major depressive disorder, single episode, unspecified; R56.9 Unspecified convulsions; I27.20 Pulmonary hypertension, unspecified; D69.6 Thrombocytopenia, unspecified; E78.5 Hyperlipidemia, unspecified; Z95.0 Presence of cardiac pacemaker; Z79.01 Long term (current) use of anticoagulants; Z79.82 Long term (current) use of aspirin; Z86.73 Personal history of transient ischemic attack (TIA), and cerebral infarction without residual deficits; Z79.899 Other long term (current) drug therapy; E55.9 Vitamin D deficiency, unspecified
CPT/HCPCS: J2704; J7120

== ENCOUNTER 2020-07-30 17:50 | Emergency (ER) | payer MEDICARE, MEDICAID ==
[~2020-07-30] VITALS: Ht 170.2 cm; Wt 89.1 kg
[2020-07-30 18:21] VITALS: TEMP 98.3
[2020-07-30 18:54] LABS: BASO % 0.4 % (0.0-2.0); EOS # 0.1 (0.0-0.7); GRAN # 3.3 (1.4-6.5); GRAN % 59.4 % (42.2-75.2); HEMATOCRIT 40.7 % (37.0-47.0); HEMOGLOBIN 13.9 g/dl (12.5-16.0); LYMPH # 1.5 (1.2-3.4); LYMPH % 27.7 % (20.0-51.0); MEAN CELL VOLUME 96 fl (80.0-100.0); MEAN CORPUSCULAR HEMOGLOBIN 33 pg (27.0-31.0); MEAN CORPUSCULAR HGB CONC 34 g/dl (33.0-37.0); MEAN PLATELET VOLUME 10.5 fl (7.4-10.4); MONO # 0.6 (0.1-0.6); MONO % 10.1 % (1.7-9.3); PLATELET COUNT 143 K/mm3 (130-400); RED BLOOD COUNT 4.22 M/mm3 (4.10-5.30); REDCELL DISTRIBUTION WIDTH-CV 13.1 % (11.5-14.5)
[2020-07-30 18:57] LABS: COLLECTION METHOD CATHETER
[2020-07-30 19:04] LABS: PH 5 (5-8); URINE APPEARANCE Turbid; URINE BACTERIA None Seen /hpf; URINE BILIRUBIN Negative (NEGATIVE); URINE BLOOD 3+ (NEGATIVE); URINE COLOR Amber; URINE GLUCOSE Negative (NEGATIVE); URINE KETONE Negative (NEGATIVE); URINE LEUKOCYTE ESTERASE 3+ (NEGATIVE); URINE NITRATE Negative (NEGATIVE); URINE PROTEIN(semi-quant) 2+ (NEGATIVE); URINE RBC >50 /hpf; URINE UROBILINOGEN Negative (NEGATIVE); URINE WBC >50 /hpf
[2020-07-30 19:06] LABS: BILIRUBIN,TOTAL 0.6 mg/dL (0.0-1.0); CALCIUM 9.3 mg/dL (8.4-10.2); CREATININE, serum 1.34 (0.52-1.25); POTASSIUM 3.6 mmol/L (3.4-5.0)
[2020-07-30] MEDS ORDERED: OMNICEF 300MG300 MG PO (20:25)
[2020-07-30 20:38] VITALS: BP 110/87; PULSE 77
== END 2020-07-30 20:38 | disposition home or self-care (01) ==
LOC: COL.ER 17:50
PROVIDERS: Nurse Practitioner Primary Care
DX: N30.01 Acute cystitis with hematuria (principal); R79.89 Other specified abnormal findings of blood chemistry; R56.9 Unspecified convulsions; I25.2 Old myocardial infarction; I48.91 Unspecified atrial fibrillation; Z95.0 Presence of cardiac pacemaker; Z98.61 Coronary angioplasty status; Z79.01 Long term (current) use of anticoagulants
CPT/HCPCS: J0696; J7030; Q9967

== ENCOUNTER 2020-10-07 09:22 | Day surgery (SDC) | payer MEDICARE, MEDICAID ==
[2020-10-07] VITALS (9 sets, daily range): BP systolic 106–135; BP diastolic 69–97; PULSE 55–74; TEMP 97.6–97.7
[~2020-10-07] VITALS: Ht 170.2 cm; Wt 95.4 kg
[2020-10-07] MEDS ORDERED: PACERONE400 MG PO (09:49)
[2020-10-07] MEDS ORDERED: DESYREL 50MG50 MG PO (09:53)
[2020-10-07] MEDS ORDERED: B-121000 MCG PO (09:54)
[2020-10-07] MEDS ORDERED: SYNTHROID 0.0.025 MG PO (09:55)
[2020-10-07] MEDS ORDERED: DIPROLENE CR15GM TP (09:55)
[2020-10-07 10:42] LABS: HEMOGLOBIN 13.2 g/dl (12.5-16.0); MEAN CELL VOLUME 100 fl (80.0-100.0); MEAN CORPUSCULAR HEMOGLOBIN 33 pg (27.0-31.0); MEAN CORPUSCULAR HGB CONC 33 g/dl (33.0-37.0); MEAN PLATELET VOLUME 10.6 fl (7.4-10.4); PLATELET COUNT 125 K/mm3 (130-400); RED BLOOD COUNT 4.01 M/mm3 (4.10-5.30); REDCELL DISTRIBUTION WIDTH-CV 13.1 % (11.5-14.5)
[2020-10-07 10:50] LABS: INR 1.6 (0.8-3.0); PROTHROMBIN TIME 18.5 SECONDS (9.7-12.8)
[2020-10-07 10:53] LABS: PARTIAL THROMBOPLASTIN TIME 43.2 SECONDS (26.0-37.0)
[2020-10-07 10:58] LABS: CALCIUM 9.3 mg/dL (8.4-10.2); CREATININE, serum 1.22 (0.52-1.25); MAGNESIUM 2.2 mg/dL (1.6-2.3); POTASSIUM 4.2 mmol/L (3.4-5.0)
[2020-10-07 11:27] LABS: THYROID STIMULATING HORMONE 7.21 uIU/mL (0.465-4.680)
[2020-10-07] MEDS ORDERED: AMOXICILLIN 8751 TAB PO (13:04)
--- NOTE | 2020-10-07 14:00 | NUR ---
Pt did well during her recovery period. Pt care was assumed at 1130 from Odilia MURILLO. Pt was alert and oriented. telemetry employed. repeat EKG was obtained and Bozena MURILLO was notified of prolonged QT on this EKG. No new orders were received. Pt does report some anterior chest pain that was expected as it was reported pressure had been applied to chest during 2nd shock and a crack had been heard. a chest xray was obtained, no fracture reported. Pt was given a pain pill however which seemed to help. Pt did have a wet sounding cough throughout her recovery, she stated she has had this cough for weeks. pt did not appear to have any SOB, she remained afebrile. Pt verbalized understanding of her rx/fu and dc instructions. i\\IV was dc'd with cath intact, dressing was applied. pt was ambulatory with steady gait in room, and when ride at patient entrance, was escorted to exit via wheelchair.
== END 2020-10-07 14:45 | disposition home or self-care (01) ==
LOC: COL.CAR 09:22
PROVIDERS: Internal Medicine Cardiovascular Disease
DX: I48.0 Paroxysmal atrial fibrillation (principal); F41.9 Anxiety disorder, unspecified; K21.9 Gastro-esophageal reflux disease without esophagitis; I10 Essential (primary) hypertension; E78.5 Hyperlipidemia, unspecified; E03.9 Hypothyroidism, unspecified; I25.5 Ischemic cardiomyopathy; G47.33 Obstructive sleep apnea (adult) (pediatric); M19.90 Unspecified osteoarthritis, unspecified site; I27.20 Pulmonary hypertension, unspecified; M85.80 Other specified disorders of bone density and structure, unspecified site; I49.5 Sick sinus syndrome; Z86.73 Personal history of transient ischemic attack (TIA), and cerebral infarction without residual deficits; G43.909 Migraine, unspecified, not intractable, without status migrainosus; Z96.653 Presence of artificial knee joint, bilateral; Z96.611 Presence of right artificial shoulder joint; Z79.01 Long term (current) use of anticoagulants; Z79.899 Other long term (current) drug therapy; I25.10 Atherosclerotic heart disease of native coronary artery without angina pectoris

== ENCOUNTER 2021-03-07 07:36 | Day surgery (SDC) | payer MEDICARE, MEDICAID ==
[2021-03-07] VITALS (8 sets, daily range): BP systolic 114–131; BP diastolic 70–90; PULSE 69–87; TEMP 98.3
[~2021-03-07] VITALS: Ht 170.2 cm; Wt 95.7 kg
[~2021-03-07 07:36] MED LIST changes: +AMOXICILLIN 8751 TAB PO; +B-121000 MCG PO; +DESYREL 50MG50 MG PO; +DIPROLENE CR15GM TP; +SYNTHROID 0.0.025 MG PO
[2021-03-07] MEDS ORDERED: B-12 500 MCG PO (08:20)
[2021-03-07 08:27] LABS: HEMOGLOBIN 11.6 g/dl (12.5-16.0); MEAN CELL VOLUME 96 fl (80.0-100.0); MEAN CORPUSCULAR HEMOGLOBIN 33 pg (27.0-31.0); MEAN CORPUSCULAR HGB CONC 34 g/dl (33.0-37.0); MEAN PLATELET VOLUME 10.9 fl (7.4-10.4); PLATELET COUNT 126 K/mm3 (130-400); RED BLOOD COUNT 3.55 M/mm3 (4.10-5.30); REDCELL DISTRIBUTION WIDTH-CV 14.6 % (11.5-14.5)
[2021-03-07 08:34] LABS: CREATININE, serum 1.3 (0.52-1.25); HEMATOCRIT 34.1 % (37.0-47.0); POTASSIUM 4.3 mmol/L (3.4-5.0)
[2021-03-07 09:01] LABS: INR 1.2 (0.8-3.0); PROTHROMBIN TIME 13.5 SECONDS (9.7-12.8)
--- NOTE | 2021-03-07 11:06 | NUR ---
SEE MERGE FOR ALL MEDICATION ADMINISTRATION TIMES, INTRA AND POST SEDATION ASSESSMENTS
--- NOTE | 2021-03-07 13:15 | NUR ---
INT discontinued intact. Discharge instructions given.
--- NOTE | 2021-03-07 13:30 | NUR ---
Transferred to private car by Cam MURILLO
== END 2021-03-07 13:36 | disposition home or self-care (01) ==
LOC: COL.CAR 07:36
PROVIDERS: Internal Medicine Cardiovascular Disease
DX: Z45.010 Encounter for checking and testing of cardiac pacemaker pulse generator [battery] (principal); I48.0 Paroxysmal atrial fibrillation; I42.8 Other cardiomyopathies; I10 Essential (primary) hypertension; I48.91 Unspecified atrial fibrillation; I27.20 Pulmonary hypertension, unspecified; I49.5 Sick sinus syndrome; E78.5 Hyperlipidemia, unspecified; E03.9 Hypothyroidism, unspecified; I07.1 Rheumatic tricuspid insufficiency; G47.33 Obstructive sleep apnea (adult) (pediatric); R56.9 Unspecified convulsions; Z86.73 Personal history of transient ischemic attack (TIA), and cerebral infarction without residual deficits; Z20.822 Contact with and (suspected) exposure to COVID-19
CPT/HCPCS: C1785; J0690; J1644; J2250; J2405; J3010

== ENCOUNTER 2021-08-27 15:27 | Emergency (ER) | payer MEDICARE, MEDICAID ==
[~2021-08-27] VITALS: Ht 165.1 cm; Wt 95.9 kg
[~2021-08-27 15:27] MED LIST changes: +B-12 500 MCG PO
[2021-08-27 15:28] VITALS: TEMP 98.6
[2021-08-27 16:11] LABS: BASO % 0.4 % (0.0-2.0); EOS # 0.1 K/mm3 (0.0-0.7); EOS % 0.5 % (0.0-4.0); GRAN # 8.7 K/mm3 (1.4-6.5); GRAN % 81.9 % (42.2-75.2); HEMOGLOBIN 11.1 g/dl (12.5-16.0); LYMPH # 0.8 K/mm3 (1.2-3.4); LYMPH % 7.9 % (20.0-51.0); MEAN CELL VOLUME 99 fl (80.0-100.0); MEAN CORPUSCULAR HEMOGLOBIN 33 pg (27-31); MEAN CORPUSCULAR HGB CONC 33 g/dl (33.0-37.0); MEAN PLATELET VOLUME 10.5 fl (7.4-10.4); MONO # 0.9 K/mm3 (0.1-0.6); MONO % 8.4 % (1.7-9.3); PLATELET COUNT 282 K/mm3 (130-400); RED BLOOD COUNT 3.39 M/mm3 (4.10-5.30); REDCELL DISTRIBUTION WIDTH-CV 16.3 % (11.5-14.5)
[2021-08-27 16:12] LABS: HEMATOCRIT 33.5 % (37.0-47.0)
[2021-08-27 16:29] LABS: ALBUMIN 2.6 gm/dL (3.4-4.8); BILIRUBIN,TOTAL 2.6 mg/dL (0.2-1.2); CALCIUM 8.2 mg/dL (8.4-10.2); CREATININE, serum 0.84 mg/dL (0.57-1.11); POTASSIUM 5.5 mmol/L (3.5-4.5); TOTAL PROTEIN 5.8 gm/dL (6.2-8.1)
[2021-08-27 17:59] LABS: COLLECTION METHOD CLEAN CATCH
[2021-08-27 18:09] LABS: MUCOUS Present (NOT PRESENT); PH 5 (5-8); SQUAMOUS EPITHELIAL 0-2 /hpf (0-10); URINE APPEARANCE Hazy (CLEAR/HAZY); URINE BACTERIA Rare /hpf (NONE SEEN); URINE BILIRUBIN Negative (NEGATIVE); URINE BLOOD Negative (NEGATIVE); URINE COLOR Amber (YELLOW); URINE GLUCOSE Negative (NEGATIVE); URINE KETONE Negative (NEGATIVE); URINE LEUKOCYTE ESTERASE Negative (NEGATIVE); URINE NITRATE Negative (NEGATIVE); URINE PROTEIN(semi-quant) Negative (NEGATIVE); URINE RBC 0-2 /hpf (0-2); URINE UROBILINOGEN >=4.0 (NEGATIVE)
[2021-08-27 20:18] VITALS: BP 111/70; PULSE 69
== END 2021-08-27 20:18 | disposition home or self-care (01) ==
LOC: COL.ER 15:27
PROVIDERS: Family Medicine
DX: R05.9 Cough, unspecified (principal)
CPT/HCPCS: J1940; J7030

== ENCOUNTER 2022-01-04 07:12 | Day surgery (SDC) | payer MEDICARE, MEDICAID ==
[2022-01-04] VITALS (8 sets, daily range): BP systolic 107–115; BP diastolic 55–68; PULSE 66–75; TEMP 73
[~2022-01-04] VITALS: Ht 165.1 cm; Wt 87.8 kg
[2022-01-04] MEDS ORDERED: SYNTHROID0.075 MG/T PO (08:03)
[2022-01-04] MEDS ORDERED: TESSALON PERLE200 MG (08:05)
[2022-01-04] MEDS ORDERED: K-DUR20 MEQ PO (08:07)
[2022-01-04] MEDS ORDERED: TYLENOL 325MG325 MG PO (08:09)
[2022-01-04] MEDS ORDERED: ALTACE 1.25MG1.25 MG PO (08:11)
[2022-01-04] MEDS ORDERED: DULCOLAX S10 MG/SUPP RC (08:12)
[2022-01-04] MEDS ORDERED: VITAMIN D31000 I1 PO (08:13)
[2022-01-04] MEDS ORDERED: MUCINEX 60600 MG/TA1 PO (08:15)
[2022-01-04] MEDS ORDERED: LASIX 40MG TABL40 MG PO ×2 (08:16→08:17)
[2022-01-04] MEDS ORDERED: MULTIGEN1 TAB PO (08:18)
[2022-01-04 08:44] LABS: HEMOGLOBIN 10.6 g/dl (12.5-16.0); MEAN CELL VOLUME 89 fl (80.0-100.0); MEAN CORPUSCULAR HEMOGLOBIN 30 pg (27-31); MEAN CORPUSCULAR HGB CONC 33 g/dl (33.0-37.0); MEAN PLATELET VOLUME 9.7 fl (7.4-10.4); PLATELET COUNT 258 K/mm3 (130-400); RED BLOOD COUNT 3.57 M/mm3 (4.10-5.30); REDCELL DISTRIBUTION WIDTH-CV 15.6 % (11.5-14.5)
[2022-01-04 08:56] LABS: HEMATOCRIT 31.8 % (37.0-47.0)
[2022-01-04 09:00] LABS: CALCIUM 8.9 mg/dL (8.4-10.2); CREATININE, serum 0.79 mg/dL (0.57-1.11); POTASSIUM 3.9 mmol/L (3.5-4.5)
[2022-01-04 09:02] LABS: INR 1.4 (0.8-3.0); PROTHROMBIN TIME 16.3 SECONDS (9.7-12.8)
[2022-01-04] MEDS ORDERED: DEBROX OT (10:22)
[2022-01-04] MEDS ORDERED: IMODIUM A-D2 MG PO (10:23)
[2022-01-04] MEDS ORDERED: GOOD NEIGH1200 MG/15 PO (10:24)
[2022-01-04] MEDS ORDERED: TYLENOL SU650 MG/SUP RC (10:26)
[2022-01-04] MEDS ORDERED: ANUSOL-HC SUPPO25 MG RC (10:27)
[2022-01-04] MEDS ORDERED: ALUM-MAG HYDROX30 ML PO (10:29)
--- NOTE | 2022-01-04 10:29 | NUR ---
See merge for all medication, assessment, intervention, and vital sign times.
--- NOTE | 2022-01-04 13:25 | NUR ---
PATIENT RETURNED TO ROOM 12 AT 1140, DRESSING D&I TO LEFT CHEST, ICE BAG PLACED OVER DRESSING. PATIENT HAS NO C/O ACUTE ISSUES, DECLINED LUNCH, STATED SHE JUST WANTED TO REST. I NOTIFIED NURSE AGATHA AT [facility] THAT PATIENT WOULD BE RETURNING TO FACILITY TODAY, THE INITIAL PLAN WAS FOR HER TO REMAIN OVER NIGHT. 1315, GAVE REPORT TO CHIDI LI WHO TOOK OVER CARE OF PATIENT
--- NOTE | 2022-01-04 15:00 | NUR ---
Discharge education given to pt, pt verbalizes understanding. Attempted to give report to nurse Kirti at [facility], nurse not able to get report at that time. Called back nurse and got voicemail. Will attempt report call again. pt to wheelchair to exit.
--- NOTE | 2022-01-04 16:44 | NUR ---
Called Kirti ross at [facility] for report, voicemail message again.
== END 2022-01-04 19:00 ==
LOC: COL.CAR 07:12
PROVIDERS: Internal Medicine Cardiovascular Disease
DX: I48.0 Paroxysmal atrial fibrillation (principal); I10 Essential (primary) hypertension
CPT/HCPCS: C1894; J0690; J2250; J3010; J7030

== ENCOUNTER 2022-01-20 18:30 | Inpatient (IN) | payer MEDICARE, MEDICAID ==
[~2022-01-20] VITALS: Ht 170.2 cm; Wt 99.8 kg
[2022-01-20 19:22] LABS: BASO % 0.3 % (0.0-2.0); EOS # 0.1 K/mm3 (0.0-0.7); GRAN # 4.2 K/mm3 (1.4-6.5); GRAN % 69.5 % (42.2-75.2); LYMPH # 1.1 K/mm3 (1.2-3.4); LYMPH % 18.8 % (20.0-51.0); MEAN CELL VOLUME 90 fl (80.0-100.0); MEAN CORPUSCULAR HGB CONC 33 g/dl (33.0-37.0); MEAN PLATELET VOLUME 9.9 fl (7.4-10.4); MONO # 0.6 K/mm3 (0.1-0.6); MONO % 9.9 % (1.7-9.3); PLATELET COUNT 325 K/mm3 (130-400); RED BLOOD COUNT 3.36 M/mm3 (4.10-5.30); REDCELL DISTRIBUTION WIDTH-CV 16.2 % (11.5-14.5)
[2022-01-20 19:27] LABS: HEMATOCRIT 30.2 % (37.0-47.0); HEMOGLOBIN 9.9 g/dl (12.5-16.0); MEAN CORPUSCULAR HEMOGLOBIN 29 pg (27-31)
[2022-01-20 19:44] LABS: ALANINE AMINOTRANSFERASE 7 U/L (0-55); ALBUMIN 2.7 gm/dL (3.4-4.8); ALKALINE PHOSPHATASE 149 U/L (40-150); ANION GAP 15 mmol/L (7-16); AST,SGOT 23 U/L (5-34); BLOOD UREA NITROGEN 18 mg/dL (10-20); C-REACTIVE PROTEIN 14.11 mg/dL (0.00-0.50); CALCIUM 9.2 mg/dL (8.4-10.2); CARBON DIOXIDE 21 mmol/L (23-31); CHLORIDE 96 mmol/L (98-107); CREATININE, serum 0.91 mg/dL (0.57-1.11); GLUCOSE 140 mg/dL (70-99); POTASSIUM 4.4 mmol/L (3.5-4.5); SODIUM 132 mmol/L (136-145); TOTAL PROTEIN 7.4 gm/dL (6.2-8.1)
[2022-01-20 19:55] LABS: ERYTHROCYTE SEDIMENTATION RATE > 140 mm/hr (0-30)
[2022-01-20 20:13] LABS: TROPONIN-I < 0.010 ng/mL (0.00-0.033)
[2022-01-20 21:08] LABS: COLLECTION METHOD CLEAN CATCH
[2022-01-20 21:17] LABS: MUCOUS Present (NOT PRESENT); PH 5 (5-8); SQUAMOUS EPITHELIAL 0-2 /hpf (0-10); URINE APPEARANCE Clear (CLEAR/HAZY); URINE BACTERIA None Seen /hpf (NONE SEEN); URINE BLOOD Negative (NEGATIVE); URINE COLOR Yellow (YELLOW); URINE GLUCOSE Negative (NEGATIVE); URINE KETONE Negative (NEGATIVE); URINE NITRATE Negative (NEGATIVE); URINE PROTEIN(semi-quant) Negative (NEGATIVE); URINE RBC 0-2 /hpf (0-2); URINE UROBILINOGEN Negative (NEGATIVE)
[2022-01-21] VITALS (7 sets, daily range): BP systolic 98–114; BP diastolic 48–77; PULSE 62–87; TEMP 97.4–99
[2022-01-21 00:09] LABS: SYNOVIAL FL. MONONUCLEAR 11.8 % (0-75); SYNOVIAL FLUID RBC 7000 /mm3 (0-0); SYNOVIAL FLUID WBC 41196 /mm3 (200-600)
[2022-01-21 00:43] LABS: SYNOVIAL FLUID APPEARANCE CLOUDY; SYNOVIAL FLUID COLOR YELLOW
[2022-01-21 00:43] LABS: SYNOVIAL FLUID APPEARANCE CLOUDY; SYNOVIAL FLUID COLOR AMBER
[2022-01-21 00:45] LABS: SYNOVIAL FL. MONONUCLEAR 18.4 % (0-75); SYNOVIAL FLUID RBC 24000 /mm3 (0-0); SYNOVIAL FLUID WBC 39083 /mm3 (200-600)
--- NOTE | 2022-01-21 01:03 | NUR ---
PT. TO ROOM 329 FROM ER FOR BILATERAL KNEE PAIN. PT. A&OX4. COMPLAINING OF BILAERAL KNEE PAIN 01/15. NO SKIN CONDITIONS. PT. HAS A RECENT SCAR TO LEFT SIDE OF CHEST FROM PACEMAKER SURGERY. INT TO RIGHT WRIST PATENT. BOTH KNEES ARE WRAPPED IN AN BEVERLEY WRAP. PT. ORIENTED TO ROOM AND GIVEN A WARM BLANKET. CALL LIGHT IN REACH. NO FURTHER NEEDS AT THIS TIME.
[2022-01-21] MEDS ORDERED: NORCO 325 MG-51 TAB PO (01:36)
--- NOTE | 2022-01-21 05:45 | NUR ---
71 yo female admitted for further care and management of possible sepsis secondary to possible septic arthritis vs. prosthetic joint infection. ht 170.18 cm wt 80 kg SCr 0.91 with estimated CrCl ~55 ml/min half life 15.2 hours Plan: Will give an initial loading dose of vancomycin 1750 mg (21.9 mg/kg); followed by a maintenance regimen of vancomycin 1000 mg q12h to target a goal trough of 15-20 mcg/ml. Will follow patient's renal function, micro data, and vancomycin levels as indicated to assess for any necessary changes to regimen. Thank you for this dosing consult.
[2022-01-21 06:00] LABS: BASO % 0.4 % (0.0-2.0); EOS # 0.1 K/mm3 (0.0-0.7); EOS % 1.9 % (0.0-4.0); GRAN # 2.9 K/mm3 (1.4-6.5); GRAN % 62.9 % (42.2-75.2); LYMPH # 0.9 K/mm3 (1.2-3.4); LYMPH % 19.2 % (20.0-51.0); MEAN CELL VOLUME 90 fl (80.0-100.0); MEAN CORPUSCULAR HGB CONC 33 g/dl (33.0-37.0); MEAN PLATELET VOLUME 9.6 fl (7.4-10.4); MONO # 0.7 K/mm3 (0.1-0.6); PLATELET COUNT 255 K/mm3 (130-400); RED BLOOD COUNT 3.12 M/mm3 (4.10-5.30); REDCELL DISTRIBUTION WIDTH-CV 16.1 % (11.5-14.5)
[2022-01-21 06:03] LABS: HEMOGLOBIN 9.1 g/dl (12.5-16.0); MEAN CORPUSCULAR HEMOGLOBIN 29 pg (27-31)
[2022-01-21 06:16] LABS: CALCIUM 8.5 mg/dL (8.4-10.2); CREATININE, serum 0.79 mg/dL (0.57-1.11); POTASSIUM 3.6 mmol/L (3.5-4.5)
[2022-01-21 06:55] LABS: MAGNESIUM 1.8 mg/dL (1.6-2.6)
[2022-01-21 06:58] LABS: THYROID STIMULATING HORMONE 3.788 uIU/mL (0.350-4.940)
--- NOTE | 2022-01-21 12:36 | NUR ---
SW met with patient to complete intake. Patient states that she lives at [facility] in [facility]. Patient utilzes a walker and assist with ADLs at [facility]. PCP is Dr. Kirkland, and patient provides that her pharmacy is where ever [facility] obtains medications. DPOA/HC is her daughter Lucero [phone]. Plan is to return to [facility] up on DC. ARY will continue to follow. DC plan: Back to [facility]
--- NOTE | 2022-01-21 21:06 | NUR ---
ASSESSMENT COMPLETE. PT. LYING IN BED. A&O. COMPLAINING OF PAIN 8/10 TO BILATERAL KNEES. NORCO GIVEN (SEE EMAR). INT TO RIGHT WRIST PATENT. BILATERAL KNEES WRAPPED IN BEVERLEY WRAP. +2 EDEMA TO LOWER EXTREMETIES. CALL LIGHT IN REACH. NO FURHTER NEEDS AT THIS TIME.
[2022-01-22] VITALS (7 sets, daily range): BP systolic 93–120; BP diastolic 47–74; PULSE 48–82; TEMP 97.7–99.3
[2022-01-22 07:09] LABS: BASO % 0.4 % (0.0-2.0); EOS # 0.1 K/mm3 (0.0-0.7); GRAN # 3.1 K/mm3 (1.4-6.5); GRAN % 61.1 % (42.2-75.2); LYMPH # 1.1 K/mm3 (1.2-3.4); LYMPH % 21.9 % (20.0-51.0); MEAN CELL VOLUME 91 fl (80.0-100.0); MEAN CORPUSCULAR HGB CONC 33 g/dl (33.0-37.0); MONO # 0.7 K/mm3 (0.1-0.6); MONO % 14.2 % (1.7-9.3); PLATELET COUNT 266 K/mm3 (130-400); RED BLOOD COUNT 3.09 M/mm3 (4.10-5.30); REDCELL DISTRIBUTION WIDTH-CV 16.3 % (11.5-14.5)
[2022-01-22 07:11] LABS: HEMOGLOBIN 9.2 g/dl (12.5-16.0); INR 1.6 (0.8-3.0); MEAN CORPUSCULAR HEMOGLOBIN 30 pg (27-31); PROTHROMBIN TIME 18.2 SECONDS (9.7-12.8)
[2022-01-22 07:27] LABS: CALCIUM 8.7 mg/dL (8.4-10.2); CREATININE, serum 0.77 mg/dL (0.57-1.11); MAGNESIUM 1.9 mg/dL (1.6-2.6); POTASSIUM 4.7 mmol/L (3.5-4.5)
[2022-01-23] VITALS (15 sets, daily range): BP systolic 87–138; BP diastolic 51–84; PULSE 62–110; TEMP 97.6–98.7
--- NOTE | 2022-01-23 01:23 | NUR ---
PATIENT ALERT AND ORIENTED ON ROOM ENTRY. HS MEDS PER EMAR. DENIES PAIN. BILATERAL KNEES SWOLLEN AND WARM BUT NO REDNESS NOTED. REMAINS NPO AT MIDNIGHT. CONSENT FORMS SIGNED AND IN CHART.
--- NOTE | 2022-01-23 10:36 | NUR ---
Initial visit; Patient thanked Facility Security Officer for looking in on her prior to her bilateral knee surgery. Facility Security Officer offered comfort and prayer and will continue to look in on Leonila and keep her in Facility Security Officer's prayers.
--- NOTE | 2022-01-23 15:13 | NUR ---
PATIENT ALERT AND ORIENTED X3. VSS. PATIENT HERE FOR FOR BILAT KNEE PAIN, SEPTIC. PATIENT DENIES PAIN. ASSESSMENT PERFORMED. AM MEDS HELD DUE TO ERIKA AND POSSIBLE SURGERY AFTER. IV VANC RUNNING IN RIGHT WRIST. PATIENT IN BED WITH CALL LIGHT NEAR.
--- NOTE | 2022-01-23 15:22 | NUR ---
The patient had knee surgery today. ARY faxed updates to Shanika at [facility].
--- NOTE | 2022-01-23 18:08 | NUR ---
PATIENT OFF OF FLOOR AT 1300 FOR SURGERY.
--- NOTE | 2022-01-23 23:38 | NUR ---
Patient arrived to surgical unit at approximately 1935. Alert and oriented. Reports pain to BLE. Also having nausea/emesis when drinking any fluids. Call placed to ИВАН Soto. New order for Morphine and Zofran recieved, and given per orders. Patient complaining of feeling very cold. Unable to get patient warm with multiple blankets. Called Collar Starcher, who blayne bear hugger for patient. Patient reports it is helping. Patient was on oxygen at 4 L/min via Oxymask, turned down to 3 L/min. Does have occasional dry cough. Indwelling bray catheter patent, draining clear, evelyn urine via depenedent drainage. IV fluids continue per orders, as well as IV ABX. Dressings to bilateral knees CDI. Ice packs to both knees. In bed with call light within reach. Bed alarm on.
[2022-01-24] VITALS (7 sets, daily range): BP systolic 81–111; BP diastolic 49–68; PULSE 56–121; TEMP 97.3–98.7
--- NOTE | 2022-01-24 05:53 | NUR ---
Continues on IV fluids per orders. Has tolerated sips of water. Given PO medications this morning and tolerated well. Left on clear liquid diet for breakfast and can advance if tolerates well per orders. Ice to bilateral knees. Dressings to knees CDI. Bear hugger taken off around 0330. Voices no questions, needs, or concerns at this time. In bed with call light within reach. Bed alarm on.
[2022-01-24 06:54] LABS: HEMATOCRIT 25.5 % (37.0-47.0); HEMOGLOBIN 8.3 g/dl (12.5-16.0)
--- NOTE | 2022-01-24 14:39 | NUR ---
ARY faxed updates to Shanika at [facility].
--- NOTE | 2022-01-24 17:00 | NUR ---
1600 - CALL MADE TO DR. NAVARRO REGARDING PT'S LOW URINE OUTPUT. WANG CHECKED FOR PATENCY AND PT BLADDER SCANNED FOR ACCURACY. VERBAL ORDER TO GIVE PT'S 1600 DOSE OF PO LASIX DESPITE SYSTOLIC BP <[address] NAV[address]O. WILL CONTINUE TO MONITOR.
--- NOTE | 2022-01-24 22:02 | NUR ---
Pt bladder scanned due to small amounts of urine. Bladder scanner revealed 12ml of urine. Will continue to monitor.
[2022-01-25] VITALS (7 sets, daily range): BP systolic 83–98; BP diastolic 41–60; PULSE 85–112; TEMP 97.7–99
--- NOTE | 2022-01-25 01:05 | NUR ---
Report received from day shift. Pt resting quietly in bed, with the television on. Pt is A&Ox3 and pleasant. Assessment and medication administration completed without difficulty. Pt still has 16fr bray in place; we will continue to monitor urinary output due to low output. Pts bilateral wrappings appear CD&I. Pt has had minimal complaints of pain throughout the shift thus far, will continue to monitor. Call light within reach.
--- NOTE | 2022-01-25 03:24 | NUR ---
This nurse called ИВАН Spence in regards to pts poor urinary output. Output thus far this shift has been approximately 110 ml with IV fluids running at 50ml/hr. Per PA IV fluids were increased to 100ml/hr. New order entered. Will continue to monitor.
[2022-01-25 06:44] LABS: BASO % 0.3 % (0.0-2.0); EOS # 0.1 K/mm3 (0.0-0.7); EOS % 1.4 % (0.0-4.0); GRAN # 7.1 K/mm3 (1.4-6.5); GRAN % 77.3 % (42.2-75.2); LYMPH # 0.9 K/mm3 (1.2-3.4); LYMPH % 10.1 % (20.0-51.0); MEAN CELL VOLUME 91 fl (80.0-100.0); MEAN CORPUSCULAR HGB CONC 32 g/dl (33.0-37.0); MONO % 10.4 % (1.7-9.3); PLATELET COUNT 244 K/mm3 (130-400); RED BLOOD COUNT 2.66 M/mm3 (4.10-5.30); REDCELL DISTRIBUTION WIDTH-CV 16.6 % (11.5-14.5)
[2022-01-25 06:46] LABS: HEMATOCRIT 24.2 % (37.0-47.0); HEMOGLOBIN 7.7 g/dl (12.5-16.0); MEAN CORPUSCULAR HEMOGLOBIN 29 pg (27-31)
[2022-01-25 06:59] LABS: CALCIUM 8.3 mg/dL (8.4-10.2); CREATININE, serum 1.41 mg/dL (0.57-1.11); MAGNESIUM 1.9 mg/dL (1.6-2.6); POTASSIUM 4.5 mmol/L (3.5-4.5)
--- NOTE | 2022-01-25 09:00 | NUR ---
PATIENT IS 2 MAX ASSIST FROM BEDSIDE CHAIR BACK INTO BED FOR AIVS FOR PICC PLACEMENT.
--- NOTE | 2022-01-25 10:19 | NUR ---
AIVS DONE PLACING PICC LINE, CXR OBTAINED. LAB CALLED TO COME RECEIVE LABS. FLUID BOLUS TO BE STARTED PER ORDERS, SEE SEP.
--- NOTE | 2022-01-25 10:45 | NUR ---
Follow-up visit; Patient thanked Radio Artist for looking in on her and offering God's blessings. Radio Artist continues to offer Leonila well.
--- NOTE | 2022-01-25 11:00 | NUR ---
PT A&O RESTING IN BED. AM MEDS GIVEN AND ASSESSMENT COMPLETED. PICC PLACED TO [facility] WITH NS BOLUS RUNNING. NASAL CANNULA AT 3L O2. SEIZURE PRECAUTIONS IMPLEMENTED. BILATERAL KNEE INCISIONS CDI. PT REPORTS A PN OF 5/10 IN BOTH KNEES. ICE PACKS APPLIED TO RELIEVE DISCOMFORT. NO OTHER NEEDS AT THIS TIME. CALL LIGHT WITHIN REACH.
--- NOTE | 2022-01-25 15:34 | NUR ---
ARY faxed updates to Shanika at [facility].
[2022-01-26] VITALS (12 sets, daily range): BP systolic 84–109; BP diastolic 54–71; PULSE 55–96; TEMP 97.4–98.7
[2022-01-26 05:58] LABS: BASO % 0.4 % (0.0-2.0); EOS # 0.2 K/mm3 (0.0-0.7); EOS % 2.1 % (0.0-4.0); GRAN # 5.4 K/mm3 (1.4-6.5); GRAN % 74.3 % (42.2-75.2); LYMPH % 13.3 % (20.0-51.0); MEAN CELL VOLUME 93 fl (80.0-100.0); MEAN CORPUSCULAR HGB CONC 32 g/dl (33.0-37.0); MEAN PLATELET VOLUME 10.4 fl (7.4-10.4); MONO # 0.7 K/mm3 (0.1-0.6); MONO % 9.3 % (1.7-9.3); PLATELET COUNT 209 K/mm3 (130-400); RED BLOOD COUNT 2.43 M/mm3 (4.10-5.30); REDCELL DISTRIBUTION WIDTH-CV 16.8 % (11.5-14.5)
[2022-01-26 05:59] LABS: HEMATOCRIT 22.5 % (37.0-47.0); HEMOGLOBIN 7.1 g/dl (12.5-16.0); MEAN CORPUSCULAR HEMOGLOBIN 29 pg (27-31)
[2022-01-26 06:22] LABS: CALCIUM 7.7 mg/dL (8.4-10.2); CREATININE, serum 1.24 mg/dL (0.57-1.11); MAGNESIUM 1.9 mg/dL (1.6-2.6); POTASSIUM 4.3 mmol/L (3.5-4.5)
--- NOTE | 2022-01-26 07:21 | NUR ---
Pt has had an uneventful shift, she has been resting quietly in bed. Wills catheter still in place to DD. Assessment and medication administration completed without difficulty. Pt has had no complaints of pain this shift, bilateral knee dressings are still in place. Later in the shift a PCT asked for assistance in changing the pts jacquie due to some leakage from the catheter insertion site. Pt said no because that would require that she stand up with help and that she would rather wait until PT/OT comes. This nurse explained that PT/OT would not be here until about 0900. Pt stated that it was fine and that she would wait. Refusal for bed change was noted. All other needs were met at this time. Call light within reach.
--- NOTE | 2022-01-26 09:28 | NUR ---
PT UP TO CHAIR WITH PT AND PCT. EATING BREAKFAST. PT REPORTS BL KNEE PAIN 8 OF 10. MEDICATION GIVEN. PT WITH WANG. OUTPUT OKAY. BL LE EDEMA. PROVIDER SAW PT. OKAY TO CHANGE DRESSINGS TO AQUACELL. DECREASE RATE OF IV FLUIDS TO 75 ML/HR FROM 125. TO TRANSFUSE ONE UNIT PRBC. TYPE AND SCREEN ORDERED AND DRAWN. AWAITING RESULTS.
--- NOTE | 2022-01-26 11:08 | NUR ---
ARY met with the patient to follow up. The patient was sitting up in her chair, watching TV. She states that she is hanging in there. She had no concerns for SW and confirms plan to return back to [facility] upon discharge. ARY contacted the patient's daughter, Lucero, to check-in. Lucero also confirms plan and states that she is an RN at [facility], so has been staying updated. *Discharge plan: [facility] SNF*
[2022-01-26 16:31] LABS: HEMATOCRIT 26.9 % (37.0-47.0); HEMOGLOBIN 8.8 g/dl (12.5-16.0)
--- NOTE | 2022-01-26 21:00 | NUR ---
PT ASSISTED TO BED WITH 2 STAFF, REPORTS HAVING STIFF KNEES AND HAD DIFFICULTY TRANSFERRING. WANG REMAINS PT ISN'T MOVING WELL. REMOVED BULKY DRSG'S FROM BILATERAL KNEES AND PLACED AQUACEL DRSG'S ON. PLACED JIL HOSE ON AT THIS TIME. HAS RT PICC WITH IVF INFUSING WITHOUT PROBLEM. DENIES NEED FOR PAIN MEDS AT THIS TIME.
[2022-01-27 03:43] VITALS: BP 106/056; BP 106/56; PULSE 57; TEMP 97.6
--- NOTE | 2022-01-27 04:40 | NUR ---
PT TAKING PO WELL. DC'D IVF PER ELIANA RINALDI.
[2022-01-27 06:18] LABS: BASO % 0.5 % (0.0-2.0); EOS # 0.2 K/mm3 (0.0-0.7); EOS % 2.4 % (0.0-4.0); GRAN # 4.7 K/mm3 (1.4-6.5); GRAN % 73.2 % (42.2-75.2); LYMPH # 0.9 K/mm3 (1.2-3.4); MEAN CELL VOLUME 91 fl (80.0-100.0); MEAN CORPUSCULAR HGB CONC 32 g/dl (33.0-37.0); MEAN PLATELET VOLUME 10.7 fl (7.4-10.4); MONO # 0.6 K/mm3 (0.1-0.6); MONO % 9.3 % (1.7-9.3); PLATELET COUNT 195 K/mm3 (130-400); RED BLOOD COUNT 2.73 M/mm3 (4.10-5.30); REDCELL DISTRIBUTION WIDTH-CV 16.8 % (11.5-14.5)
[2022-01-27 06:25] LABS: HEMATOCRIT 24.7 % (37.0-47.0); MEAN CORPUSCULAR HEMOGLOBIN 29 pg (27-31)
[2022-01-27 06:42] LABS: CREATININE, serum 1.1 mg/dL (0.57-1.11); MAGNESIUM 2.1 mg/dL (1.6-2.6); POTASSIUM 4.2 mmol/L (3.5-4.5)
[2022-01-27 07:23] VITALS: BP 104/56; PULSE 57; TEMP 98.7
--- NOTE | 2022-01-27 09:26 | NUR ---
ALERT AND OX3. EATING BREAKFAST. ENC TO TAKE PAIN MED TO WORK W PT THIS AM. AGREED. AM MEDS GIVEN.
[2022-01-27 11:48] VITALS: BP 103/66; PULSE 78; TEMP 96.8
--- NOTE | 2022-01-27 12:04 | NUR ---
CALLED DR POWELL TO CONFIRM WHAT ANTIBOTIC AND HOW LONG HE WANTS HER ON THEM. WILL PLACE NEEDS/ORDERS IN HIS NOTE TODAY.
--- NOTE | 2022-01-27 13:14 | NUR ---
MESSAGE LEFT FOR DR POWELL- ? HE WILL MANAGE IV ANTIBOTIC ORDERS,LABS PROCEEDING DC. [facility] INQUIRING BEFORE ACCEPTANCE BACK.
--- NOTE | 2022-01-27 13:50 | NUR ---
DR CHONG CALLED BACK AND VERBALLY GAVE ORDER FOR DC ANTIBOTIC, LABS AND PICC CARE. HE WILL WRITE IT ALL IN NOTE BUT STATES IT WILL BE LATER. ORDERS WERE FOLLOWS. 1 GRAM OF VANCO Q 24HR IV, 1 GRAM OF ROCEPIN Q 24HR IV BOTH ARE TO BE FOR 6 WEEKS ENDING 03/08. CBC,CMP,CPR AND ESR Q SUNDAY CALL WITH RESULTS TO [phone]. VANCO TROUGH SUNDAY AND THURSDAYS. FAX TO [phone]. PICC LINE REMOVAL AND CARES AFTER MED REGIMEN COMPLETE AT 6WEEKS. [facility] WILL NOT ACCEPT UNTIL PT HAS A BM, ONLY PASSING GAS AT THIS POINT. ? DC TOMORROW NOW.
--- NOTE | 2022-01-27 14:12 | NUR ---
The clinical team was looking at discharge today, pending ID's recs. ID noted his recs and that he will follow the patient's care. ARY notified and faxed updates to Shanika at [facility]. Shanika reports that they are concerned that the patient has not had a bowel movement yet and would require this, before she comes over. ARY notified the RN. ARY confirmed she has not had a bowel movement yet. Possible discharge tomorrow. ARY contacted and updated the patient's daughter, Lucero. Lucero is in agreement to the plan. ARY met with the patient and presented and read the IM form outloud to her. The patient verbalized understanding and signed the form. ARY provided her with a copy. *Discharge plan: [facility]*
[2022-01-27 15:45] VITALS: BP 119/52; PULSE 75; TEMP 97.6
[2022-01-27 19:55] VITALS: BP 111/60; PULSE 71; TEMP 98.1
--- NOTE | 2022-01-27 22:53 | NUR ---
PT LAYING IN BED RESTING. WANG REMOVED AT AROUND 22:30. PT TOLERATED WELL. PT DENIES ANY PAIN AT THIS TIME. WILL CONTINUE TO MONITOR.
[2022-01-27 23:56] VITALS: BP 113/76; PULSE 75; TEMP 97.5
--- NOTE | 2022-01-28 03:19 | NUR ---
Vancomycin Follow-up Pharmacy Note Current regimen: 1 g q24h Vancomycin trough: 21.95 Adjustments: 750 mg q24h
[2022-01-28 04:04] VITALS: BP 110/67; PULSE 68; TEMP 97.6
[2022-01-28 07:05] LABS: BASO % 0.4 % (0.0-2.0); EOS # 0.2 K/mm3 (0.0-0.7); EOS % 3.4 % (0.0-4.0); GRAN % 64.2 % (42.2-75.2); LYMPH # 0.9 K/mm3 (1.2-3.4); LYMPH % 18.3 % (20.0-51.0); MEAN CELL VOLUME 92 fl (80.0-100.0); MEAN CORPUSCULAR HGB CONC 32 g/dl (33.0-37.0); MEAN PLATELET VOLUME 10.4 fl (7.4-10.4); MONO # 0.6 K/mm3 (0.1-0.6); MONO % 13.1 % (1.7-9.3); PLATELET COUNT 200 K/mm3 (130-400); RED BLOOD COUNT 2.85 M/mm3 (4.10-5.30); REDCELL DISTRIBUTION WIDTH-CV 16.8 % (11.5-14.5)
[2022-01-28 07:09] LABS: HEMATOCRIT 26.1 % (37.0-47.0); HEMOGLOBIN 8.3 g/dl (12.5-16.0); MEAN CORPUSCULAR HEMOGLOBIN 29 pg (27-31)
[2022-01-28 07:33] LABS: CALCIUM 8.4 mg/dL (8.4-10.2); CREATININE, serum 0.92 mg/dL (0.57-1.11); MAGNESIUM 2.1 mg/dL (1.6-2.6); POTASSIUM 4.4 mmol/L (3.5-4.5)
[2022-01-28 08:04] VITALS: BP 97/62; PULSE 86; TEMP 97.7
--- NOTE | 2022-01-28 10:30 | NUR ---
PATIENT HAS BEEN PASSING FLATUS. PATIENT JUST HAD SOFT FORMED, MEDIUM SIZED BOWEL MOVEMENT.
--- NOTE | 2022-01-28 10:49 | NUR ---
Clinical updates faxed to Shanika at [facility]. Notified her that the patient had a BM this morning.
[2022-01-28] MEDS ORDERED: COLACE 100100 MG/CAP PO (11:32)
[2022-01-28] MEDS ORDERED: SENNA-LAX8.6 MG PO (11:32)
[2022-01-28] MEDS ORDERED: MIRALAX PA17 GM/Dose PO (11:32)
[2022-01-28] MEDS ORDERED: TYLENOL 500MG500 MG PO (11:34)
[2022-01-28] MEDS ORDERED: ROXICODONE 55 MG/TAB PO (11:43)
[2022-01-28] MEDS ORDERED: ROCEPHIN 2GM VIAL21 IV (11:43)
[2022-01-28] MEDS ORDERED: VANCOMYCIN IV (11:45)
--- NOTE | 2022-01-28 12:13 | NUR ---
Covid result and discharge orders faxed to [facility]. Per Elz[facility], transportation can pick the patient up at 1300. Patient,family and care team updated.
[2022-01-28 12:23] VITALS: BP 108/80; PULSE 112; TEMP 97.7
--- NOTE | 2022-01-28 13:39 | NUR ---
REPORT CALLED TO [facility] NURSE ROSE.
--- NOTE | 2022-01-28 13:48 | NUR ---
ALL DISCHARGE PAPER WORK GIVEN AND SIGNED. PATIENT LEFT IN STABLE CONDITION WITH [employer].
--- NOTE | 2022-01-28 15:03 | NUR ---
PRESCRIPTIONS FAXED TO NURSE AT [facility].
== END 2022-01-28 13:45 | DRG 461 ==
LOC: COL.ER 18:30 → SURG 22:57
PROVIDERS: Emergency Medicine; Family Medicine; Nurse Practitioner Family; Orthopaedic Surgery; Physician Assistant; ADMIT Internal Medicine
PROC: 0S9D3ZX Drainage of Left Knee Joint, Percutaneous Approach, Diagnostic (ICD-10-PCS; 2022-01-21)
PROC: 0S9C3ZX Drainage of Right Knee Joint, Percutaneous Approach, Diagnostic (ICD-10-PCS; 2022-01-21)
PROC: 0SRD0J9 Replacement of Left Knee Joint with Synthetic Substitute, Cemented, Open Approach (ICD-10-PCS; 2022-01-23)
PROC: 0SPC0JZ Removal of Synthetic Substitute from Right Knee Joint, Open Approach (ICD-10-PCS; 2022-01-23)
PROC: 0SRC0J9 Replacement of Right Knee Joint with Synthetic Substitute, Cemented, Open Approach (ICD-10-PCS; 2022-01-23)
PROC: 0SPD0JZ Removal of Synthetic Substitute from Left Knee Joint, Open Approach (ICD-10-PCS; principal; 2022-01-23 13:30)
PROC: 02HV33Z Insertion of Infusion Device into Superior Vena Cava, Percutaneous Approach (ICD-10-PCS; 2022-01-25)
DX: T84.54XA Infection and inflammatory reaction due to internal left knee prosthesis, initial encounter (principal); I50.43 Acute on chronic combined systolic (congestive) and diastolic (congestive) heart failure; A41.9 Sepsis, unspecified organism; R65.20 Severe sepsis without septic shock; I42.8 Other cardiomyopathies; E87.1 Hypo-osmolality and hyponatremia; E87.2 Acidosis; M00.9 Pyogenic arthritis, unspecified; I13.0 Hypertensive heart and chronic kidney disease with heart failure and stage 1 through stage 4 chronic kidney disease, or unspecified chronic kidney disease; N17.9 Acute kidney failure, unspecified; Z96.653 Presence of artificial knee joint, bilateral; T84.53XA Infection and inflammatory reaction due to internal right knee prosthesis, initial encounter; I48.91 Unspecified atrial fibrillation; I27.20 Pulmonary hypertension, unspecified; K21.9 Gastro-esophageal reflux disease without esophagitis; G25.81 Restless legs syndrome; E03.9 Hypothyroidism, unspecified; F32.A Depression, unspecified; G47.30 Sleep apnea, unspecified; D64.9 Anemia, unspecified; G40.909 Epilepsy, unspecified, not intractable, without status epilepticus; Z20.822 Contact with and (suspected) exposure to COVID-19; E78.5 Hyperlipidemia, unspecified; M06.9 Rheumatoid arthritis, unspecified; M19.90 Unspecified osteoarthritis, unspecified site; N18.9 Chronic kidney disease, unspecified; G89.29 Other chronic pain; M54.9 Dorsalgia, unspecified; I49.5 Sick sinus syndrome; I08.1 Rheumatic disorders of both mitral and tricuspid valves; E87.8 Other disorders of electrolyte and fluid balance, not elsewhere classified; R73.9 Hyperglycemia, unspecified; Z66 Do not resuscitate; G47.33 Obstructive sleep apnea (adult) (pediatric); I95.9 Hypotension, unspecified; Y83.8 Other surgical procedures as the cause of abnormal reaction of the patient, or of later complication, without mention of misadventure at the time of the procedure; Z79.01 Long term (current) use of anticoagulants; Z86.73 Personal history of transient ischemic attack (TIA), and cerebral infarction without residual deficits; Z95.0 Presence of cardiac pacemaker; Y92.89 Other specified places as the place of occurrence of the external cause; Z79.890 Hormone replacement therapy; Z23 Encounter for immunization
CPT/HCPCS: 99232-AI; 99233-AI; A4314; A9284; C1713; C1751; C1776; C1892; J0690; J0696; J1650; J1940; J2250; J2270; J2405; J2704; J3010; J3260; J3370; J7030; J7040; J7050; P9016; Q9967

== ENCOUNTER → 2022-01-20 | Outpatient (CLI) | payer MEDICARE, MEDICAID ==
[~2022-01-20] MED LIST changes: +ALTACE 1.25MG1.25 MG PO; +ALUM-MAG HYDROX30 ML PO; +ANUSOL-HC SUPPO25 MG RC; +DEBROX OT; +DULCOLAX S10 MG/SUPP RC; +GOOD NEIGH1200 MG/15 PO; +IMODIUM A-D2 MG PO; +K-DUR20 MEQ PO; +MUCINEX 60600 MG/TA1 PO; +MULTIGEN1 TAB PO; +SYNTHROID0.075 MG/T PO; +TESSALON PERLE200 MG; +TYLENOL SU650 MG/SUP RC; +VITAMIN D31000 I1 PO
[2022-01-20 17:15] LABS: RETIC # 0.08 M/mm3 (0.02-0.16); RETIC % 2.2 % (0.5-3.52)
== END ==
LOC: ZCOL.LAB 16:38
PROVIDERS: Internal Medicine
DX: D64.9 Anemia, unspecified (principal)

== ENCOUNTER 2022-02-08 10:14 | Outpatient (CLI) | payer MEDICARE, MEDICAID ==
[~2022-02-08] VITALS: Ht 170.2 cm; Wt 92.7 kg
[~2022-02-08 10:14] MED LIST changes: +COLACE 100100 MG/CAP PO; +MIRALAX PA17 GM/Dose PO; +ROCEPHIN 2GM VIAL21 IV; +ROXICODONE 55 MG/TAB PO; +SENNA-LAX8.6 MG PO; +TYLENOL 500MG500 MG PO; +VANCOMYCIN IV
[2022-02-08 12:11] VITALS: BP 118/67; PULSE 90; TEMP 97.7
[2022-02-08 12:20] LABS: CALCIUM 8.8 mg/dL (8.4-10.2); CREATININE, serum 0.93 mg/dL (0.57-1.11); POTASSIUM 3.3 mmol/L (3.5-4.5)
== END 2022-02-08 18:33 | disposition home or self-care (01) ==
LOC: EUO 10:14
PROVIDERS: Internal Medicine
DX: E87.1 Hypo-osmolality and hyponatremia (principal)

== ENCOUNTER → 2022-05-10 | Outpatient (CLI) | payer MEDICARE, MEDICAID ==
[2022-05-10 13:04] LABS: BASO % 0.2 % (0.0-2.0); EOS # 0.1 K/mm3 (0.0-0.7); EOS % 2.6 % (0.0-4.0); GRAN # 3.1 K/mm3 (1.4-6.5); GRAN % 67.8 % (42.2-75.2); HEMATOCRIT 30.5 % (37.0-47.0); LYMPH % 21.4 % (20.0-51.0); MEAN CELL VOLUME 93 fl (80.0-100.0); MEAN CORPUSCULAR HEMOGLOBIN 31 pg (27-31); MEAN CORPUSCULAR HGB CONC 33 g/dl (33.0-37.0); MEAN PLATELET VOLUME 9.5 fl (7.4-10.4); MONO # 0.4 K/mm3 (0.1-0.6); MONO % 7.6 % (1.7-9.3); PLATELET COUNT 265 K/mm3 (130-400); RED BLOOD COUNT 3.28 M/mm3 (4.10-5.30); REDCELL DISTRIBUTION WIDTH-CV 14.1 % (11.5-14.5)
[2022-05-10 14:26] LABS: ERYTHROCYTE SEDIMENTATION RATE 10 mm/hr (0-30)
== END ==
LOC: ZCOL.LAB 12:48
PROVIDERS: Internal Medicine
DX: M25.562 Pain in left knee (principal); Z96.652 Presence of left artificial knee joint

== ENCOUNTER → 2022-08-08 | Outpatient (REF) | payer MEDICARE, MEDICAID ==
[~2022-08-08] MED LIST changes: +MAXIPIME2 GM IV
[2022-08-08 07:57] LABS: BASO % 0.6 % (0.0-2.0); EOS # 0.2 K/mm3 (0.0-0.7); EOS % 6.5 % (0.0-4.0); GRAN # 1.2 K/mm3 (1.4-6.5); GRAN % 35.9 % (42.2-75.2); LYMPH # 1.5 K/mm3 (1.2-3.4); LYMPH % 46.1 % (20.0-51.0); MEAN CELL VOLUME 98 fl (80.0-100.0); MEAN CORPUSCULAR HGB CONC 32 g/dl (33.0-37.0); MEAN PLATELET VOLUME 10.9 fl (7.4-10.4); MONO # 0.4 K/mm3 (0.1-0.6); MONO % 10.9 % (1.7-9.3); PLATELET COUNT 150 K/mm3 (130-400); RED BLOOD COUNT 3.16 M/mm3 (4.10-5.30); REDCELL DISTRIBUTION WIDTH-CV 16.1 % (11.5-14.5)
[2022-08-08 08:08] LABS: HEMATOCRIT 30.9 % (37.0-47.0); HEMOGLOBIN 9.9 g/dl (12.5-16.0); MEAN CORPUSCULAR HEMOGLOBIN 31 pg (27-31)
[2022-08-08 08:15] LABS: ALBUMIN 2.6 gm/dL (3.4-4.8); BILIRUBIN,TOTAL 0.4 mg/dL (0.2-1.2); C-REACTIVE PROTEIN 0.87 mg/dL (0.00-0.50); CALCIUM 9.3 mg/dL (8.4-10.2); CREATININE, serum 1.09 mg/dL (0.57-1.11); POTASSIUM 4.1 mmol/L (3.5-4.5); TOTAL PROTEIN 6.1 gm/dL (6.2-8.1)
[2022-08-08 08:37] LABS: ERYTHROCYTE SEDIMENTATION RATE 18 mm/hr (0-30)
== END ==
LOC: ZCOL.LAB 07:50
PROVIDERS: Internal Medicine
DX: T84.54XD Infection and inflammatory reaction due to internal left knee prosthesis, subsequent encounter (principal)

== ENCOUNTER → 2022-08-14 | Outpatient (CLI) | payer MEDICARE, MEDICAID ==
[2022-08-14 09:02] LABS: ALBUMIN 2.7 gm/dL (3.4-4.8); BILIRUBIN,TOTAL 0.4 mg/dL (0.2-1.2); C-REACTIVE PROTEIN 0.73 mg/dL (0.00-0.50); CREATININE, serum 0.89 mg/dL (0.57-1.11); POTASSIUM 4.3 mmol/L (3.5-4.5); TOTAL PROTEIN 5.8 gm/dL (6.2-8.1)
[2022-08-14 09:03] LABS: HEMATOCRIT 31.6 % (37.0-47.0); HEMOGLOBIN 10.1 g/dl (12.5-16.0); MEAN CELL VOLUME 98 fl (80.0-100.0); MEAN CORPUSCULAR HEMOGLOBIN 31 pg (27-31); MEAN CORPUSCULAR HGB CONC 32 g/dl (33.0-37.0); MEAN PLATELET VOLUME 11.3 fl (7.4-10.4); PLATELET COUNT 145 K/mm3 (130-400); RED BLOOD COUNT 3.23 M/mm3 (4.10-5.30); REDCELL DISTRIBUTION WIDTH-CV 15.4 % (11.5-14.5)
[2022-08-14 09:08] LABS: ERYTHROCYTE SEDIMENTATION RATE 20 mm/hr (0-30)
== END ==
LOC: COL.LAB 08:57 → ZCOL.LAB 08:57
PROVIDERS: Orthopaedic Surgery
DX: T84.54XD Infection and inflammatory reaction due to internal left knee prosthesis, subsequent encounter (principal)

== ENCOUNTER → 2022-08-21 | Outpatient (CLI) | payer MEDICARE, MEDICAID ==
[2022-08-21 09:42] LABS: ALBUMIN 2.9 gm/dL (3.4-4.8); BILIRUBIN,TOTAL 0.4 mg/dL (0.2-1.2); C-REACTIVE PROTEIN 0.75 mg/dL (0.00-0.50); CALCIUM 9.3 mg/dL (8.4-10.2); CREATININE, serum 0.95 mg/dL (0.57-1.11); POTASSIUM 4.2 mmol/L (3.5-4.5); TOTAL PROTEIN 5.9 gm/dL (6.2-8.1)
[2022-08-21 10:09] LABS: BASO % 0.7 % (0.0-2.0); EOS # 0.2 K/mm3 (0.0-0.7); EOS % 7.5 % (0.0-4.0); GRAN # 0.9 K/mm3 (1.4-6.5); GRAN % 31.4 % (42.2-75.2); HEMOGLOBIN 10.6 g/dl (12.5-16.0); LYMPH # 1.5 K/mm3 (1.2-3.4); LYMPH % 51.5 % (20.0-51.0); MEAN CELL VOLUME 94 fl (80.0-100.0); MEAN CORPUSCULAR HEMOGLOBIN 32 pg (27-31); MEAN CORPUSCULAR HGB CONC 34 g/dl (33.0-37.0); MONO # 0.3 K/mm3 (0.1-0.6); MONO % 8.9 % (1.7-9.3); PLATELET COUNT 141 K/mm3 (130-400); RED BLOOD COUNT 3.35 M/mm3 (4.10-5.30); REDCELL DISTRIBUTION WIDTH-CV 14.7 % (11.5-14.5)
[2022-08-21 10:10] LABS: ERYTHROCYTE SEDIMENTATION RATE 18 mm/hr (0-30); HEMATOCRIT 31.4 % (37.0-47.0)
== END ==
LOC: ZCOL.LAB 09:19
PROVIDERS: Internal Medicine
DX: T84.54XD Infection and inflammatory reaction due to internal left knee prosthesis, subsequent encounter (principal); D64.9 Anemia, unspecified

== ENCOUNTER 2022-10-20 15:51 | Inpatient (IN) | payer MEDICARE, MEDICAID ==
[~2022-10-20] VITALS: Ht 170.2 cm; Wt 58.9 kg
[2022-10-20 16:48] LABS: BASO % 0.6 % (0.0-2.0); EOS # 0.1 K/mm3 (0.0-0.7); EOS % 2.9 % (0.0-4.0); GRAN # 1.9 K/mm3 (1.4-6.5); GRAN % 39.9 % (42.2-75.2); HEMOGLOBIN 10.3 g/dl (12.5-16.0); LYMPH # 2.3 K/mm3 (1.2-3.4); LYMPH % 48.4 % (20.0-51.0); MEAN CELL VOLUME 97 fl (80.0-100.0); MEAN CORPUSCULAR HEMOGLOBIN 32 pg (27-31); MEAN CORPUSCULAR HGB CONC 33 g/dl (33.0-37.0); MEAN PLATELET VOLUME 10.3 fl (7.4-10.4); MONO # 0.4 K/mm3 (0.1-0.6); PLATELET COUNT 150 K/mm3 (130-400); RED BLOOD COUNT 3.26 M/mm3 (4.10-5.30); REDCELL DISTRIBUTION WIDTH-CV 15.6 % (11.5-14.5)
[2022-10-20 16:49] LABS: HEMATOCRIT 31.5 % (37.0-47.0)
[2022-10-20 17:05] LABS: ALBUMIN 3.6 gm/dL (3.4-4.8); BILIRUBIN,TOTAL 0.7 mg/dL (0.2-1.2); CALCIUM 9.2 mg/dL (8.4-10.2); CREATININE, serum 1.17 mg/dL (0.57-1.11); TOTAL PROTEIN 6.3 gm/dL (6.2-8.1)
[2022-10-20] MEDS ORDERED: KEPPRA 500MG500 MG PO (20:36)
[2022-10-20] MEDS ORDERED: TYLENOL 325MG325 MG PO (20:40)
[2022-10-20] MEDS ORDERED: ZYRTEC 10MG10 MG PO (20:40)
[2022-10-20] MEDS ORDERED: NEURONTIN300 MG/CAP PO (20:41)
[2022-10-20] MEDS ORDERED: LASIX 20MG TABL20 MG PO (20:41)
[2022-10-20] MEDS ORDERED: VOLTAREN GEL 1%1 TU TP (20:42)
[2022-10-20] MEDS ORDERED: ZANAFLEX2 MG PO (20:42)
--- NOTE | 2022-10-20 22:26 | NUR ---
PT ARRIVES VIA CART FROM ED.
--- NOTE | 2022-10-20 22:45 | NUR ---
PLACED #16FR WANG TO BSD WITH RETURN OF YELLOW URINE. PT TOLERATED PROCEDURE WITHOUT COMPLAINT.
[2022-10-20 22:49] VITALS: BP 118/87; PULSE 59; TEMP 98.1
[2022-10-20] MEDS ORDERED: MIRALAX PA17 GM/Dose PO (23:04)
[2022-10-20] MEDS ORDERED: K-DUR20 MEQ PO (23:06)
[2022-10-20] MEDS ORDERED: MELATONIN ER10 MG PO (23:11)
--- NOTE | 2022-10-20 23:40 | NUR ---
HS MEDS GIVEN INCLUDING OXYCODONE FOR RT LEG PAIN. TAKES MEDS WITHOUT PROBLEM. ADMISSION QUESTIONS COMPLETED. HAS INT TO RT WRIST. IS ALERT AND ORIENTED X4. SCDS AND JIL NICHOLE ON.
[2022-10-21 00:18] LABS: COLLECTION METHOD CATHETER
[2022-10-21 00:23] LABS: MUCOUS Present (NOT PRESENT); SQUAMOUS EPITHELIAL None Seen /hpf (0-10); URINE APPEARANCE Clear (CLEAR/HAZY); URINE BACTERIA None Seen /hpf (NONE SEEN); URINE COLOR Yellow (YELLOW); URINE RBC 0-2 /hpf (0-2)
[2022-10-21 00:24] LABS: PH 5.5 (5.0-8.5); URINE BLOOD Negative (NEGATIVE); URINE GLUCOSE Negative (NEGATIVE); URINE KETONE TRACE (NEGATIVE); URINE NITRATE Negative (NEGATIVE); URINE PROTEIN(semi-quant) TRACE (NEGATIVE); URINE UROBILINOGEN 0.2 E.U/dL (0.2-1.0)
--- NOTE | 2022-10-21 02:29 | NUR ---
MORPHINE 2MG IVP GIVEN FOR RT LEG PAIN.
[2022-10-21 04:16] VITALS: BP 107/60; PULSE 70; TEMP 98.4
--- NOTE | 2022-10-21 06:09 | NUR ---
MEDICATED WITH SCHEDULED AM MEDS AND OXYCODONE 5MG PO FOR RT LEG PAIN.
[2022-10-21 07:02] LABS: BASO % 0.4 % (0.0-2.0); EOS # 0.1 K/mm3 (0.0-0.7); EOS % 1.1 % (0.0-4.0); GRAN # 2.9 K/mm3 (1.4-6.5); GRAN % 61.8 % (42.2-75.2); LYMPH # 1.3 K/mm3 (1.2-3.4); MEAN CELL VOLUME 96 fl (80.0-100.0); MEAN CORPUSCULAR HGB CONC 33 g/dl (33.0-37.0); MEAN PLATELET VOLUME 10.6 fl (7.4-10.4); MONO # 0.4 K/mm3 (0.1-0.6); MONO % 9.3 % (1.7-9.3); PLATELET COUNT 121 K/mm3 (130-400); RED BLOOD COUNT 2.53 M/mm3 (4.10-5.30); REDCELL DISTRIBUTION WIDTH-CV 15.4 % (11.5-14.5)
[2022-10-21 07:03] LABS: INR 1.5 (0.8-3.0); PROTHROMBIN TIME 16.8 SECONDS (9.7-12.8)
[2022-10-21 07:08] LABS: HEMATOCRIT 24.2 % (37.0-47.0); HEMOGLOBIN 7.9 g/dl (12.5-16.0); MEAN CORPUSCULAR HEMOGLOBIN 31 pg (27-31)
[2022-10-21 07:12] LABS: CALCIUM 8.3 mg/dL (8.4-10.2); CREATININE, serum 1.09 mg/dL (0.57-1.11); MAGNESIUM 1.7 mg/dL (1.6-2.6); POTASSIUM 3.9 mmol/L (3.5-4.5)
[2022-10-21 07:29] VITALS: BP 110/60; PULSE 69; TEMP 97.5
--- NOTE | 2022-10-21 08:00 | NUR ---
PATIENT IS ORIENTED BUT VERY DROWSY REPORTING SHE HARDLY SLEPT LAST NIGHT. VSS ON TELE. REPORTS PAIN IN MANAGED AT REST AND RECENTLY HAD A PAIN PILL FROM [employer]. TEDS TO LLE. SCD'S TO BLE. NO C/O N/V. AHA DIET, PATIENT REFUSING BREAKFAST SHE JUST WANTS TO SLEEP. WANG TO DD. HEAD TO TOE ASSESSMENT COMPLETE. DNR STATUS. AM MEDS GIVEN. NO OTHER NEEDS AT THIS TIME. CALL LIGHT IN REACH. LIGHTS TURNED DOWN.
[2022-10-21 10:49] LABS: PARTIAL THROMBOPLASTIN TIME 38.6 SECONDS (26.0-37.0)
--- NOTE | 2022-10-21 11:30 | NUR ---
SW met with patient to complete intake. Patient states that she lives at [facility] at [facility] where she utilizes a walker to get around and can independently take a shower on her own, but has to have staff open the door for her to do so due to it being so heavy. PCP is Dr. Kirkland, pharmacy is [facility]. Next of kin is Lucero Ny [phone] daughter who is also DPOA/HC. DC plan is to return to [facility]. ARY will continue to follow. DC plan: back to [facility]
[2022-10-21 11:33] VITALS: BP 110/56; PULSE 81; TEMP 97.9
--- NOTE | 2022-10-21 16:27 | NUR ---
Tractor Sweeper Driver offered prayer and support with patient.
--- NOTE | 2022-10-21 16:45 | NUR ---
PTT AT GOAL, NO CHANGE PER PROTOCOL
[2022-10-21 16:51] VITALS: BP 102/59; PULSE 73; TEMP 98.6
--- NOTE | 2022-10-21 17:57 | NUR ---
pt already has an I.S. in room
[2022-10-21 20:00] VITALS: BP 118/70; PULSE 84; TEMP 98.4
--- NOTE | 2022-10-21 21:37 | NUR ---
MEDICATED WITH TRAZODONE AND OXYCODONE AT THIS TIME. HEPARIN GTT TO RFA INFUSING WITHOUT PROBLEM. WANG TO BSD WITH YELLOW URINE.
[2022-10-22] VITALS (7 sets, daily range): BP systolic 96–110; BP diastolic 51–62; PULSE 65–92; TEMP 97.6–98.7
--- NOTE | 2022-10-22 00:37 | NUR ---
PT REFUSES ES TYLENOL, ASKS FOR MORPHINE, 2MG IVP GIVEN AT THIS TIME. HEPARIN INFUSING AT 9.5CC/HR.
--- NOTE | 2022-10-22 05:46 | NUR ---
SCHEDULED AM MEDS GIVEN WITH INCLUDING OXYCODONE 5MG PO FOR RT HIP PAIN. HEP GTT CONTINUES TO RT WRIST.
[2022-10-22 07:39] LABS: MEAN CELL VOLUME 94 fl (80.0-100.0); MEAN CORPUSCULAR HGB CONC 33 g/dl (33.0-37.0); PLATELET COUNT 126 K/mm3 (130-400); RED BLOOD COUNT 2.61 M/mm3 (4.10-5.30); REDCELL DISTRIBUTION WIDTH-CV 15.5 % (11.5-14.5)
[2022-10-22 07:52] LABS: HEMATOCRIT 24.6 % (37.0-47.0); HEMOGLOBIN 8.2 g/dl (12.5-16.0); MEAN CORPUSCULAR HEMOGLOBIN 31 pg (27-31)
--- NOTE | 2022-10-22 09:00 | NUR ---
Pt doing okay at this time. Rates her pain 6-7/10 but reports that it is tolerable and she does not need/want anything for the pain. Pt refused breakfast, but discussed her getting something to take her medications with. Ended up making her some toast and she requested some milk.
--- NOTE | 2022-10-22 12:44 | NUR ---
Pt continues to do okay, reports pain is tolerable at this time. Pt not wanting anything to eat. Will continue to monitor
--- NOTE | 2022-10-22 17:25 | NUR ---
Repositioning pt in bed for comfort. Pt continues to refuse pain medication. She also refused her lunch and refusing dinner. Tried encouraging her to eat something, but she reported not feeling hungry at all
--- NOTE | 2022-10-22 22:09 | NUR ---
HS MEDS GIVEN INCLUDING OXYCODONE 5MG PO FOR RT HIP PAIN. IS ALERT AND ORIENTED X4. WILL BE NPO AT MIDNIGHT, PT AWARE. HAS HEP GTT TO RT WRIST, INFUSING WITHOUT PROBLEM. INT TO LFA, FLUSHES WELL. WANG TO BSD WITH YELLOW URINE. REFUSES ICE PACK.
[2022-10-23] VITALS (15 sets, daily range): BP systolic 98–124; BP diastolic 54–84; PULSE 67–113; TEMP 97.6–99.9
--- NOTE | 2022-10-23 | NUR ---
PT NPO FOR SURGERY.
--- NOTE | 2022-10-23 05:10 | NUR ---
HEPARIN GTT STOPPED. SCHEDULED AM MEDS GIVEN WITH OXYCODONE 5MG PO WITH SIP OF WATER. PT NPO FOR SURGERY.
[2022-10-23 05:57] LABS: MEAN CELL VOLUME 94 fl (80.0-100.0); MEAN CORPUSCULAR HGB CONC 34 g/dl (33.0-37.0); MEAN PLATELET VOLUME 10.4 fl (7.4-10.4); PLATELET COUNT 114 K/mm3 (130-400); RED BLOOD COUNT 2.45 M/mm3 (4.10-5.30); REDCELL DISTRIBUTION WIDTH-CV 15.3 % (11.5-14.5)
[2022-10-23 06:08] LABS: HEMATOCRIT 22.9 % (37.0-47.0); HEMOGLOBIN 7.7 g/dl (12.5-16.0); MEAN CORPUSCULAR HEMOGLOBIN 31 pg (27-31)
--- NOTE | 2022-10-23 08:22 | NUR ---
PT RESTING IN BED. AM MEDS GIVEN ORDERED. PLAN ON SURGERY TO LEFT FEMUR @1200 WITH . HEPARIN DRIP STOPPED @0500 PER ORDERS. PT DENIES NEEDS AND REPORTS PAIN IS CURRENTLY TOLERABLE.
[2022-10-23 10:17] LABS: CALCIUM 8.2 mg/dL (8.4-10.2); CREATININE, serum 1.06 mg/dL (0.57-1.11)
--- NOTE | 2022-10-23 11:57 | NUR ---
PT TO SURGERY PER BED, NO IV FLUIDS WERE ORDERED. BLOOD TO BE GIVEN PERIOP PER CHARLIE RN OR WOOD HACKER. [facility] TRANSPORTED PT AT THIS TIME.
--- NOTE | 2022-10-23 15:14 | NUR ---
PT TO ROOM 343 PER BED WITH REPORT FROM RAMAKRISHNA MURILLO PACU @0329. PT IS A/O X4, LUNGS CTA, BOWEL SOUNDS PRESENT. DRESSINGS TO RIGHT HIP CDI WITH GAUZE AND TEGADERM OVER INCISIONS. PT DENIES NEEDS.
--- NOTE | 2022-10-23 16:36 | NUR ---
Snailer sent updates to Shey Crum as Patient come from their care. Shey verrified bed available when Patient is medically cleared.
[2022-10-24] VITALS (10 sets, daily range): BP systolic 102–125; BP diastolic 53–75; PULSE 77–115; TEMP 97.6–98.6
--- NOTE | 2022-10-24 04:43 | NUR ---
Patient is alert and oriented with clear speech. Respirations are non-labored Intravenous fluids infusing at 60ml/hr, patient has IV catheter in left and right wrist. Patient's mobility is limited, currently unable to reposition without assist. Wills draining evelyn colored urine.
[2022-10-24 07:00] LABS: BASO % 0.4 % (0.0-2.0); EOS # 0.1 K/mm3 (0.0-0.7); EOS % 1.2 % (0.0-4.0); GRAN % 60.8 % (42.2-75.2); LYMPH # 1.2 K/mm3 (1.2-3.4); LYMPH % 25.1 % (20.0-51.0); MEAN CELL VOLUME 91 fl (80.0-100.0); MEAN CORPUSCULAR HGB CONC 35 g/dl (33.0-37.0); MEAN PLATELET VOLUME 10.9 fl (7.4-10.4); MONO # 0.6 K/mm3 (0.1-0.6); MONO % 12.1 % (1.7-9.3); PLATELET COUNT 119 K/mm3 (130-400); RED BLOOD COUNT 2.21 M/mm3 (4.10-5.30); REDCELL DISTRIBUTION WIDTH-CV 15.2 % (11.5-14.5)
[2022-10-24 07:02] LABS: HEMATOCRIT 20.2 % (37.0-47.0); MEAN CORPUSCULAR HEMOGLOBIN 32 pg (27-31)
[2022-10-24 07:05] LABS: CREATININE, serum 1.07 mg/dL (0.57-1.11); POTASSIUM 3.6 mmol/L (3.5-4.5)
--- NOTE | 2022-10-24 09:52 | NUR ---
PT UP TO RECLINER FOR BREAKFAST WITH THERAPY. DR. COLEY ROUNDED ON PT THIS AM. SEE NEW ORDERS. HOLDING ELIQUIS FOR HGB OF 7.0. PLAN ON TRANSFUSING 1 UNIT PRBC.
--- NOTE | 2022-10-24 15:11 | NUR ---
REPORT TO KIRK MURILLO.
--- NOTE | 2022-10-24 16:24 | NUR ---
Petroleum Refining Firer sent updated clinical information to Shey from [facility]. ARY collaborated with the treatment team to discuss discahrge planning. Treatment team assessed potential discharge for tomorrow, 10-25-22 pending morning review. ARY contacted Shey with [facility] with this information.
[2022-10-24 17:11] LABS: HEMATOCRIT 24.8 % (37.0-47.0); HEMOGLOBIN 8.3 g/dl (12.5-16.0)
--- NOTE | 2022-10-24 20:00 | NUR ---
PATIENT IS A&O. VSS. IRREG RATE IN 70'S ON TELE. PATIENT HAS HX OF A-FIB. C/O PAIN IN RLE AND REQUESTING PAIN MEDS, GIVEN WITH HS MEDS, SEE SEP. RIGHT HIP DSG X2 IS CD&I WITH GAUZE & TEGADERM. TEDS & SCD'S TO BLE. POSITIVE PEDAL PULSES TO BLE. NO C/O N/V. VOIDING SUFFICENT AMOUNTS. RIGHT WRIST & LEFT AC IV'S TO INT. HEAD TO TOE ASSESSMENT COMPLETE. DNR STATUS. PLAN IS TO DC TO [facility] TOMORROW. NO OTHER NEEDS AT THIS TIME. CALL LIGHT IN REACH. BED ALARM ON.
[2022-10-25 03:56] VITALS: BP 111/61; PULSE 99; TEMP 97.6
[2022-10-25 06:57] LABS: BASO % 0.3 % (0.0-2.0); EOS # 0.2 K/mm3 (0.0-0.7); EOS % 3.5 % (0.0-4.0); GRAN # 3.8 K/mm3 (1.4-6.5); GRAN % 64.2 % (42.2-75.2); LYMPH % 17.6 % (20.0-51.0); MEAN CELL VOLUME 92 fl (80.0-100.0); MEAN CORPUSCULAR HGB CONC 34 g/dl (33.0-37.0); MEAN PLATELET VOLUME 10.4 fl (7.4-10.4); MONO # 0.8 K/mm3 (0.1-0.6); MONO % 14.2 % (1.7-9.3); PLATELET COUNT 143 K/mm3 (130-400); REDCELL DISTRIBUTION WIDTH-CV 15.8 % (11.5-14.5)
[2022-10-25 07:03] LABS: HEMATOCRIT 23.9 % (37.0-47.0); MEAN CORPUSCULAR HEMOGLOBIN 31 pg (27-31)
[2022-10-25 07:17] LABS: CALCIUM 8.4 mg/dL (8.4-10.2); CREATININE, serum 1.14 mg/dL (0.57-1.11); POTASSIUM 4.4 mmol/L (3.5-4.5)
[2022-10-25 07:52] VITALS: BP 107/69; PULSE 57; TEMP 98.3
[2022-10-25] MEDS ORDERED: ASPIRIN 32325 MG/TAB PO (10:07)
[2022-10-25] MEDS ORDERED: ROXICODONE 55 MG/TAB PO ×2 (10:08→10:41)
[2022-10-25] MEDS ORDERED: MULTI VITAMINS1 TAB PO (10:10)
[2022-10-25] MEDS ORDERED: VITAMIN C500 MG PO (10:10)
--- NOTE | 2022-10-25 10:10 | NUR ---
PATIENT ALERT AND ORIENTED X4. VSS. PATIENT HERE FOR RIGHT HIP FRACTURE. PATIENT REPORTS PAIN 7/10, REQUESTS PAIN MEDICATION. PATIENT REPORTS NAUSEA, REQUESTS ZOFRAN. DRESSING TO RIGHT HIP X2 CHANGED, GAUZE/TEGADERM. PATIENT RESTING IN BED, WAITING ON THERAPY. CALL LIGHT IN REACH.
[2022-10-25] MEDS ORDERED: MELATIN 3 MG-11 TAB PO (10:11)
--- NOTE | 2022-10-25 12:52 | NUR ---
ARY informed Shanika at [facility] of patients discharge. Per [facility] request, ARY asked patients RN for covid swab on the patient. Transportation arranged for a 1300 pickle water pump operator time. Patient updated. Patient presented with MCR.IM form. Education provided and patient verbalizes her agreement with discharge plan. Signed original placed in the patients chart and copy provided to the patient.
--- NOTE | 2022-10-25 13:14 | NUR ---
KATHLEEN BALDWIN'D, ROSALINO'D X2 DC'D. PATIENT AND BELONGINGS GATHERED AND ESCORTED OUT VIA TRANSPORTER. REPORT CALLED TO JORGE WALSH.
== END 2022-10-25 13:15 | DRG 481 ==
LOC: COL.ER 15:51 → SURG 19:37
PROVIDERS: Emergency Medicine; Internal Medicine; Orthopaedic Surgery; Physician Assistant; Student in an Organized Health Care Education/Training Program; ADMIT Student in an Organized Health Care Education/Training Program
PROC: 0QS606Z Reposition Right Upper Femur with Intramedullary Internal Fixation Device, Open Approach (ICD-10-PCS; principal; 2022-10-23 12:00)
DX: S72.141A Displaced intertrochanteric fracture of right femur, initial encounter for closed fracture (principal); I13.0 Hypertensive heart and chronic kidney disease with heart failure and stage 1 through stage 4 chronic kidney disease, or unspecified chronic kidney disease; I42.8 Other cardiomyopathies; I48.91 Unspecified atrial fibrillation; W01.0XXA Fall on same level from slipping, tripping and stumbling without subsequent striking against object, initial encounter; G40.909 Epilepsy, unspecified, not intractable, without status epilepticus; N18.9 Chronic kidney disease, unspecified; Z66 Do not resuscitate; I49.5 Sick sinus syndrome; E03.9 Hypothyroidism, unspecified; I07.1 Rheumatic tricuspid insufficiency; D64.9 Anemia, unspecified; I50.9 Heart failure, unspecified; M62.81 Muscle weakness (generalized); G89.29 Other chronic pain; M19.90 Unspecified osteoarthritis, unspecified site; K21.9 Gastro-esophageal reflux disease without esophagitis; G47.33 Obstructive sleep apnea (adult) (pediatric); Z20.822 Contact with and (suspected) exposure to COVID-19; I27.20 Pulmonary hypertension, unspecified; Z95.0 Presence of cardiac pacemaker; Z79.890 Hormone replacement therapy; Z86.73 Personal history of transient ischemic attack (TIA), and cerebral infarction without residual deficits; Y93.89 Activity, other specified; Y92.89 Other specified places as the place of occurrence of the external cause; Z88.6 Allergy status to analgesic agent; Z87.01 Personal history of pneumonia (recurrent); Z79.01 Long term (current) use of anticoagulants; Z79.899 Other long term (current) drug therapy; Z23 Encounter for immunization
CPT/HCPCS: A4314; A9284; C1713; J0690; J1644; J2250; J2270; J2405; J2704; J3010; J3475; J7050; J7121; P9016

== ENCOUNTER → 2023-06-08 | Outpatient (CLI) | payer MEDICARE, MEDICAID ==
[~2023-06-08] MED LIST changes: +ASPIRIN 32325 MG/TAB PO; +MELATIN 3 MG-11 TAB PO; +MELATONIN ER10 MG PO; +MULTI VITAMINS1 TAB PO; +VITAMIN C500 MG PO; +VOLTAREN GEL 1%1 TU TP; +ZANAFLEX2 MG PO; +ZYRTEC 10MG10 MG PO
[2023-06-08 15:04] LABS: BASO % 0.6 % (0.0-2.0); EOS # 0.2 K/mm3 (0.0-0.7); EOS % 6.6 % (0.0-4.0); GRAN # 1.9 K/mm3 (1.4-6.5); GRAN % 54.6 % (42.2-75.2); LYMPH # 0.9 K/mm3 (1.2-3.4); LYMPH % 26.9 % (20.0-51.0); MEAN CELL VOLUME 97 fl (80.0-100.0); MEAN CORPUSCULAR HGB CONC 32 g/dl (33.0-37.0); MEAN PLATELET VOLUME 10.7 fl (7.4-10.4); MONO # 0.4 K/mm3 (0.1-0.6); PLATELET COUNT 151 K/mm3 (130-400); RED BLOOD COUNT 3.17 M/mm3 (4.10-5.30); REDCELL DISTRIBUTION WIDTH-CV 15.9 % (11.5-14.5)
[2023-06-08 15:25] LABS: BILIRUBIN,TOTAL 0.4 mg/dL (0.2-1.2); C-REACTIVE PROTEIN 2.49 mg/dL (0.00-0.50); CALCIUM 9.1 mg/dL (8.4-10.2); CREATININE, serum 0.75 mg/dL (0.57-1.11); POTASSIUM 4.2 mmol/L (3.5-4.5); TOTAL PROTEIN 6.2 gm/dL (6.2-8.1)
[2023-06-08 15:31] LABS: HEMATOCRIT 30.8 % (37.0-47.0); HEMOGLOBIN 9.8 g/dl (12.5-16.0); MEAN CORPUSCULAR HEMOGLOBIN 31 pg (27-31)
[2023-06-08 15:44] LABS: THYROID STIMULATING HORMONE 0.817 uIU/mL (0.350-4.940)
== END ==
LOC: ZCOL.LAB 14:53
PROVIDERS: Internal Medicine
DX: Z01.89 Encounter for other specified special examinations (principal)

== ENCOUNTER → 2023-07-04 | Outpatient (REF) | payer MEDICARE, MEDICAID ==
[2023-07-04 09:27] LABS: C-REACTIVE PROTEIN 3.21 mg/dL (0.00-0.50)
[2023-07-04 09:35] LABS: BASO % 0.3 % (0.0-2.0); EOS # 0.2 K/mm3 (0.0-0.7); EOS % 6.5 % (0.0-4.0); GRAN # 1.6 K/mm3 (1.4-6.5); GRAN % 50.3 % (42.2-75.2); LYMPH % 30.6 % (20.0-51.0); MEAN CELL VOLUME 100 fl (80.0-100.0); MEAN CORPUSCULAR HGB CONC 31 g/dl (33.0-37.0); MONO # 0.4 K/mm3 (0.1-0.6); PLATELET COUNT 197 K/mm3 (130-400); RED BLOOD COUNT 3.05 M/mm3 (4.10-5.30); REDCELL DISTRIBUTION WIDTH-CV 15.7 % (11.5-14.5)
[2023-07-04 09:36] LABS: ERYTHROCYTE SEDIMENTATION RATE 41 mm/hr (0-30); HEMATOCRIT 30.6 % (37.0-47.0); HEMOGLOBIN 9.5 g/dl (12.5-16.0); MEAN CORPUSCULAR HEMOGLOBIN 31 pg (27-31)
[2023-07-04 10:27] LABS: ALBUMIN 3.1 gm/dL (3.4-4.8); BILIRUBIN,TOTAL 0.6 mg/dL (0.2-1.2); CALCIUM 8.4 mg/dL (8.4-10.2); CREATININE, serum 0.88 mg/dL (0.57-1.11); TOTAL PROTEIN 5.7 gm/dL (6.2-8.1)
== END ==
LOC: ZCOL.LAB 09:21
PROVIDERS: Internal Medicine
DX: I48.21 Permanent atrial fibrillation (principal)

== ENCOUNTER → 2023-07-06 | Outpatient (REF) | payer MEDICARE, MEDICAID ==
[2023-07-06 13:42] LABS: COLLECTION METHOD CLEAN CATCH
[2023-07-06 14:21] LABS: URINE APPEARANCE Clear (CLEAR/HAZY); URINE BLOOD Negative (NEGATIVE); URINE COLOR Yellow (YELLOW); URINE GLUCOSE Negative (NEGATIVE); URINE KETONE Negative (NEGATIVE); URINE NITRATE Negative (NEGATIVE); URINE PROTEIN(semi-quant) Negative (NEGATIVE); URINE RBC 0-2 /hpf (0-2); URINE UROBILINOGEN 0.2 E.U/dL (0.2-1.0); URINE WBC 0-2 /hpf (0-2)
== END ==
LOC: ZCOL.LAB 11:41
PROVIDERS: Internal Medicine
DX: T46.0X1A Poisoning by cardiac-stimulant glycosides and drugs of similar action, accidental (unintentional), initial encounter (principal)

== ENCOUNTER → 2023-07-16 | Outpatient (CLI) | payer MEDICARE, MEDICAID ==
[2023-07-16 11:27] LABS: BASO % 0.8 % (0.0-2.0); EOS # 0.2 K/mm3 (0.0-0.7); EOS % 6.7 % (0.0-4.0); GRAN # 1.5 K/mm3 (1.4-6.5); GRAN % 41.6 % (42.2-75.2); LYMPH # 1.5 K/mm3 (1.2-3.4); LYMPH % 41.7 % (20.0-51.0); MEAN CELL VOLUME 99 fl (80.0-100.0); MEAN CORPUSCULAR HGB CONC 31 g/dl (33.0-37.0); MEAN PLATELET VOLUME 9.9 fl (7.4-10.4); MONO # 0.3 K/mm3 (0.1-0.6); MONO % 8.6 % (1.7-9.3); PLATELET COUNT 279 K/mm3 (130-400); RED BLOOD COUNT 3.14 M/mm3 (4.10-5.30); REDCELL DISTRIBUTION WIDTH-CV 14.9 % (11.5-14.5)
[2023-07-16 11:31] LABS: HEMOGLOBIN 9.7 g/dl (12.5-16.0); MEAN CORPUSCULAR HEMOGLOBIN 31 pg (27-31)
[2023-07-16 12:00] LABS: ALBUMIN 3.2 gm/dL (3.4-4.8); BILIRUBIN,TOTAL 0.4 mg/dL (0.2-1.2); C-REACTIVE PROTEIN 5.25 mg/dL (0.00-0.50); CALCIUM 8.6 mg/dL (8.4-10.2); CREATININE, serum 0.98 mg/dL (0.57-1.11); POTASSIUM 4.3 mmol/L (3.5-4.5); TOTAL PROTEIN 6.3 gm/dL (6.2-8.1)
== END ==
LOC: ZCOL.LAB 11:16
PROVIDERS: Internal Medicine
DX: Z47.89 Encounter for other orthopedic aftercare (principal)

== ENCOUNTER → 2023-07-23 | Outpatient (REF) | payer MEDICARE, MEDICAID ==
[2023-07-23 14:33] LABS: BASO % 0.9 % (0.0-2.0); EOS # 0.3 K/mm3 (0.0-0.7); EOS % 7.8 % (0.0-4.0); GRAN # 1.3 K/mm3 (1.4-6.5); GRAN % 36.5 % (42.2-75.2); HEMATOCRIT 28.9 % (37.0-47.0); LYMPH # 1.7 K/mm3 (1.2-3.4); LYMPH % 48.4 % (20.0-51.0); MEAN CELL VOLUME 99 fl (80.0-100.0); MEAN CORPUSCULAR HEMOGLOBIN 31 pg (27-31); MEAN CORPUSCULAR HGB CONC 31 g/dl (33.0-37.0); MEAN PLATELET VOLUME 9.8 fl (7.4-10.4); MONO # 0.2 K/mm3 (0.1-0.6); MONO % 6.1 % (1.7-9.3); PLATELET COUNT 322 K/mm3 (130-400); RED BLOOD COUNT 2.91 M/mm3 (4.10-5.30); REDCELL DISTRIBUTION WIDTH-CV 14.6 % (11.5-14.5)
[2023-07-23 14:37] LABS: ALBUMIN 3.3 gm/dL (3.4-4.8); BILIRUBIN,TOTAL 0.7 mg/dL (0.2-1.2); CALCIUM 8.9 mg/dL (8.4-10.2); CREATININE, serum 0.93 mg/dL (0.57-1.11); POTASSIUM 4.7 mmol/L (3.5-4.5); TOTAL PROTEIN 6.2 gm/dL (6.2-8.1)
[2023-07-23 14:39] LABS: C-REACTIVE PROTEIN 3.34 mg/dL (0.00-0.50)
== END ==
LOC: ZCOL.LAB 13:52
PROVIDERS: Internal Medicine
DX: I50.43 Acute on chronic combined systolic (congestive) and diastolic (congestive) heart failure (principal); Z47.89 Encounter for other orthopedic aftercare

== ENCOUNTER → 2023-07-30 | Outpatient (REF) | payer MEDICARE, MEDICAID ==
[2023-07-30 13:33] LABS: ALBUMIN 3.2 gm/dL (3.4-4.8); BILIRUBIN,TOTAL 0.6 mg/dL (0.2-1.2); C-REACTIVE PROTEIN 4.29 mg/dL (0.00-0.50); CALCIUM 8.6 mg/dL (8.4-10.2); POTASSIUM 3.9 mmol/L (3.5-4.5)
[2023-07-30 13:35] LABS: BASO % 0.8 % (0.0-2.0); EOS # 0.3 K/mm3 (0.0-0.7); EOS % 7.9 % (0.0-4.0); GRAN % 52.7 % (42.2-75.2); HEMATOCRIT 30.3 % (37.0-47.0); HEMOGLOBIN 9.4 g/dl (12.5-16.0); LYMPH # 1.1 K/mm3 (1.2-3.4); LYMPH % 30.1 % (20.0-51.0); MEAN CELL VOLUME 100 fl (80.0-100.0); MEAN CORPUSCULAR HEMOGLOBIN 31 pg (27-31); MEAN CORPUSCULAR HGB CONC 31 g/dl (33.0-37.0); MEAN PLATELET VOLUME 10.1 fl (7.4-10.4); MONO # 0.3 K/mm3 (0.1-0.6); MONO % 8.2 % (1.7-9.3); PLATELET COUNT 216 K/mm3 (130-400); RED BLOOD COUNT 3.03 M/mm3 (4.10-5.30); REDCELL DISTRIBUTION WIDTH-CV 15.7 % (11.5-14.5)
== END ==
LOC: ZCOL.LAB 12:45
PROVIDERS: Internal Medicine Infectious Disease
DX: Z47.89 Encounter for other orthopedic aftercare (principal)

== ENCOUNTER → 2023-08-15 | Outpatient (REF) | payer MEDICARE, MEDICAID ==
[2023-08-15 15:01] LABS: HEMATOCRIT 35.6 % (37.0-47.0); HEMOGLOBIN 10.9 g/dl (12.5-16.0); MEAN CELL VOLUME 102 fl (80.0-100.0); MEAN CORPUSCULAR HEMOGLOBIN 31 pg (27-31); MEAN CORPUSCULAR HGB CONC 31 g/dl (33.0-37.0); MEAN PLATELET VOLUME 9.9 fl (7.4-10.4); PLATELET COUNT 212 K/mm3 (130-400)
[2023-08-15 15:02] LABS: ALBUMIN 3.7 gm/dL (3.4-4.8); BILIRUBIN,TOTAL 0.8 mg/dL (0.2-1.2); C-REACTIVE PROTEIN 2.28 mg/dL (0.00-0.50); CALCIUM 9.2 mg/dL (8.4-10.2); CREATININE, serum 1.14 mg/dL (0.57-1.11); POTASSIUM 3.9 mmol/L (3.5-4.5); TOTAL PROTEIN 6.9 gm/dL (6.2-8.1)
== END ==
LOC: ZCOL.LAB 14:44
PROVIDERS: Internal Medicine Cardiovascular Disease
DX: Z47.89 Encounter for other orthopedic aftercare (principal); R53.1 Weakness

== ENCOUNTER → 2023-09-05 | Outpatient (REF) | payer MEDICARE, MEDICAID ==
[2023-09-05 13:55] LABS: ALBUMIN 3.7 gm/dL (3.4-4.8); BILIRUBIN,TOTAL 0.5 mg/dL (0.2-1.2); C-REACTIVE PROTEIN 0.89 mg/dL (0.00-0.50); CALCIUM 9.6 mg/dL (8.4-10.2); CREATININE, serum 1.09 mg/dL (0.57-1.11); POTASSIUM 3.7 mmol/L (3.5-4.5); TOTAL PROTEIN 6.4 gm/dL (6.2-8.1)
[2023-09-05 14:05] LABS: BASO % 0.5 % (0.0-2.0); EOS # 0.3 K/mm3 (0.0-0.7); EOS % 7.2 % (0.0-4.0); GRAN # 1.9 K/mm3 (1.4-6.5); GRAN % 46.4 % (42.2-75.2); HEMATOCRIT 36.1 % (37.0-47.0); HEMOGLOBIN 11.1 g/dl (12.5-16.0); LYMPH # 1.6 K/mm3 (1.2-3.4); LYMPH % 38.5 % (20.0-51.0); MEAN CELL VOLUME 100 fl (80.0-100.0); MEAN CORPUSCULAR HEMOGLOBIN 31 pg (27-31); MEAN CORPUSCULAR HGB CONC 31 g/dl (33.0-37.0); MEAN PLATELET VOLUME 10.2 fl (7.4-10.4); MONO # 0.3 K/mm3 (0.1-0.6); MONO % 7.4 % (1.7-9.3); PLATELET COUNT 160 K/mm3 (130-400); REDCELL DISTRIBUTION WIDTH-CV 14.2 % (11.5-14.5)
== END ==
LOC: ZCOL.LAB 13:42
PROVIDERS: Internal Medicine
DX: Z47.89 Encounter for other orthopedic aftercare (principal); N39.0 Urinary tract infection, site not specified

== ENCOUNTER 2024-02-08 09:58 | Emergency (ER) | payer MEDICARE, MEDICAID ==
[~2024-02-08] VITALS: Ht 167.6 cm; Wt 89.1 kg
[2024-02-08 10:06] VITALS: TEMP 97.6
[2024-02-08 10:34] LABS: BASO % 0.6 % (0.0-2.0); EOS # 0.2 K/mm3 (0.0-0.7); EOS % 7.2 % (0.0-4.0); GRAN # 1.7 K/mm3 (1.4-6.5); GRAN % 51.9 % (42.2-75.2); LYMPH # 0.9 K/mm3 (1.2-3.4); LYMPH % 26.9 % (20.0-51.0); MEAN CELL VOLUME 99 fl (80.0-100.0); MEAN CORPUSCULAR HGB CONC 31 g/dl (33.0-37.0); MEAN PLATELET VOLUME 10.5 fl (7.4-10.4); MONO # 0.4 K/mm3 (0.1-0.6); MONO % 13.1 % (1.7-9.3); PLATELET COUNT 123 K/mm3 (130-400); RED BLOOD COUNT 3.11 M/mm3 (4.10-5.30); REDCELL DISTRIBUTION WIDTH-CV 15.5 % (11.5-14.5)
[2024-02-08 10:52] LABS: HEMATOCRIT 30.8 % (37.0-47.0); HEMOGLOBIN 9.6 g/dl (12.5-16.0); MEAN CORPUSCULAR HEMOGLOBIN 31 pg (27-31)
[2024-02-08 11:28] LABS: BLOOD UREA NITROGEN 48 mg/dL (10-20); CREATININE, serum 1.35 mg/dL (0.57-1.11); GLUCOSE 91 mg/dL (70-99); SODIUM 136 mEq/L (136-145)
[2024-02-08 11:29] LABS: ALBUMIN 3.4 g/dL (3.4-4.8); ANION GAP 11 mmol/L (7-16); BILIRUBIN,TOTAL 0.4 mg/dL (0.2-1.2); CALCIUM 8.8 mg/dL (8.4-10.2); CHLORIDE 106 mEq/L (98-107); POTASSIUM 4.1 mEq/L (3.5-4.5); TOTAL PROTEIN 6.5 g/dl (6.2-8.1)
[2024-02-08 11:30] LABS: ALANINE AMINOTRANSFERASE 9 U/L (0-55); ALKALINE PHOSPHATASE 154 U/L (40-150); AST,SGOT 19 U/L (5-34)
[2024-02-08 11:32] LABS: TROPONIN-I < 0.010 ng/mL (0.00-0.033)
[2024-02-08] MEDS ORDERED: Furosemide 40 MG/4 ML VIAL IV ONE (12:00)
[2024-02-08 12:38] LABS: COLLECTION METHOD CLEAN CATCH
[2024-02-08 12:41] LABS: URINE APPEARANCE CLEAR (CLEAR/HAZY); URINE BLOOD NEGATIVE (NEGATIVE); URINE COLOR YELLOW (YELLOW); URINE GLUCOSE NEGATIVE (NEGATIVE); URINE KETONE NEGATIVE (NEGATIVE); URINE NITRATE NEGATIVE (NEGATIVE); URINE PROTEIN(semi-quant) NEGATIVE (NEGATIVE); URINE UROBILINOGEN 0.2 E.U/dL (0.2-1.0)
[2024-02-08 13:55] VITALS: BP 131/78; PULSE 69
== END 2024-02-08 13:59 | disposition home or self-care (01) ==
LOC: COL.ER 09:58
PROVIDERS: Physician Assistant
DX: I50.9 Heart failure, unspecified (principal); I48.91 Unspecified atrial fibrillation; Z79.01 Long term (current) use of anticoagulants; Z79.899 Other long term (current) drug therapy
CPT/HCPCS: J1940

== ENCOUNTER → 2024-03-03 | Outpatient (REF) | payer MEDICARE, MEDICAID ==
[~2024-03-03] MED LIST changes: +CAPSAICIN0.025% TOP; +IMODIUM 2MG CAPS2 MG PO; +LANOXIN 0.120.125 MG PO; +MOTRIN 400400 MG/TAB PO; +OYSTER SHELL CA1 TA6 PO; +TESSALON PERLE200 MG PO; +TOPROL XL 25MG25 MG PO; +TUMS500 MG PO; +XOPENEX 0.0.63 MG/3 IH; +ZAROXOLYN5 MG PO; +ZIAC 2.5/6.25MG1 TAB PO; +ZOFRAN 4MG T4 MG/TAB PO
[2024-03-03 11:09] LABS: BASO % 0.3 % (0.0-2.0); EOS # 0.3 K/mm3 (0.0-0.7); EOS % 8.8 % (0.0-4.0); GRAN # 1.4 K/mm3 (1.4-6.5); LYMPH # 1.2 K/mm3 (1.2-3.4); LYMPH % 36.6 % (20.0-51.0); MEAN CELL VOLUME 96 fl (80.0-100.0); MEAN CORPUSCULAR HEMOGLOBIN 30 pg (27-31); MEAN CORPUSCULAR HGB CONC 32 g/dl (33.0-37.0); MEAN PLATELET VOLUME 10.2 fl (7.4-10.4); MONO # 0.4 K/mm3 (0.1-0.6); PLATELET COUNT 153 K/mm3 (130-400); REDCELL DISTRIBUTION WIDTH-CV 14.2 % (11.5-14.5)
[2024-03-03 11:10] LABS: HEMATOCRIT 31.6 % (37.0-47.0)
[2024-03-03 11:18] LABS: CALCIUM 8.9 mg/dL (8.4-10.2); CREATININE, serum 1.33 mg/dL (0.57-1.11); POTASSIUM 3.5 mEq/L (3.5-4.5)
== END ==
LOC: ZCOL.LAB 10:54
PROVIDERS: Internal Medicine
DX: I50.43 Acute on chronic combined systolic (congestive) and diastolic (congestive) heart failure (principal)

== ENCOUNTER → 2024-03-11 | Outpatient (REF) | payer MEDICARE, MEDICAID ==
[2024-03-11 15:12] LABS: CALCIUM 9.1 mg/dL (8.4-10.2); CREATININE, serum 1.29 mg/dL (0.57-1.11); MAGNESIUM 2.1 mg/dL (1.6-2.6); POTASSIUM 4.3 mEq/L (3.5-4.5)
== END ==
LOC: ZCOL.LAB 14:16
PROVIDERS: Internal Medicine
DX: Z47.81 Encounter for orthopedic aftercare following surgical amputation (principal); D64.9 Anemia, unspecified

== ENCOUNTER → 2024-03-31 | Outpatient (CLI) | payer MEDICARE, MEDICAID ==
[2024-03-31 14:15] LABS: BASO % 0.4 % (0.0-2.0); EOS # 0.3 K/mm3 (0.0-0.7); EOS % 5.6 % (0.0-4.0); GRAN # 1.9 K/mm3 (1.4-6.5); GRAN % 35.2 % (42.2-75.2); LYMPH # 2.8 K/mm3 (1.2-3.4); LYMPH % 51.5 % (20.0-51.0); MEAN CELL VOLUME 96 fl (80.0-100.0); MEAN CORPUSCULAR HEMOGLOBIN 32 pg (27-31); MEAN CORPUSCULAR HGB CONC 33 g/dl (33.0-37.0); MEAN PLATELET VOLUME 10.4 fl (7.4-10.4); MONO # 0.4 K/mm3 (0.1-0.6); MONO % 7.1 % (1.7-9.3); PLATELET COUNT 125 K/mm3 (130-400); RED BLOOD COUNT 3.78 M/mm3 (4.10-5.30); REDCELL DISTRIBUTION WIDTH-CV 13.7 % (11.5-14.5)
[2024-03-31 14:17] LABS: HEMATOCRIT 36.1 % (37.0-47.0)
== END ==
LOC: COL.RAD 13:19
PROVIDERS: Internal Medicine Pulmonary Disease
DX: I51.7 Cardiomegaly (principal); Z87.09 Personal history of other diseases of the respiratory system

== ENCOUNTER → 2024-04-23 | Outpatient (CLI) | payer MEDICARE, MEDICAID | LOC: MC.RAD 12:50 | DX: Z12.31 Encounter for screening mammogram for malignant neoplasm of breast (principal) ==